=== PATIENT | male | born 1950 | race Caucasian/White ===

== ENCOUNTER 2020-01-04 00:51 | Emergency (ER) | payer MEDICARE, SELFPAY ==
[2020-01-04] VITALS (10 sets, daily range): BP systolic 92–145; BP diastolic 48–96; PULSE 70–81; RESP 16–22; TEMP 36.8; O2SAT 90–94; BMI 43.6
--- NOTE | 2020-01-04 01:21 | CT_ITS ---
PROCEDURE: CT HEAD/BRAIN WO CON CLINICAL INDICATION: altered mental status Altered mental status, altered level of consciousness, confusion, disorientation the COMPARISON: No exams were available for comparison TECHNIQUE: Axial images obtained. All CT scans at the facility use one or more dose reduction, viz: automated exposure control, ma/kV adjustment per patient size (including targeted exams where dose is matched to indication, i.e. head), or iterative reconstruction technique. FINDINGS: No midline shift, mass effect, intracranial hemorrhage, hydrocephalus, or extra-axial fluid collection is evident. The calvarium has an unremarkable appearance. No mastoid effusion. There is mild mucosal thickening of the ethmoid sinuses. IMPRESSION: No acute intracranial finding Dictated by: Myron Dow MD 01/04/2020 05:34 Myron Dow MD in [facility] 01/04/2020 05:34
[2020-01-04 01:27] LABS: Microscopic, Urine URINE MICROSCOPIC (MICROSCOPIC)
[2020-01-04 01:29] LABS: Appearance,Urine CLEAR (Clear); Bilirubin,Urine Negative (Negative); Blood, Urine Negative (Negative); Color,Urine YELLOW (Yellow); Glucose,Urine (UA) Negative (Negative); Ketones,Urine Negative (Negative); Leukocyte Esterase,Urine Negative (Negative); Nitrate,Urine Negative (Negative); PH,Urine 5.5 (5.0-8.5); Protein,Urine Negative (Negative); Specific Gravity, Urine 1.025 (1.005-1.030); Urobilinogen,Urine 0.2 EU/dl (0.2)
--- NOTE | 2020-01-04 01:33 | XR_ITS ---
PROCEDURE: XR CHEST 2V CLINICAL HISTORY: COPD, smoker, cough COMPARISON: CT CT CHEST WO CON from 01/04/2020 FINDINGS: The cardiomediastinal silhouette and pulmonary vascularity are within normal limits. There are increased markings in the right lower lobe which may be due to vascular overlap and soft tissue attenuation as this area has an unremarkable appearance on the subsequent CT scan. No acute bony abnormalities. IMPRESSION: No acute findings. Dictated by: Myron Dow MD 01/04/2020 05:32 Myron Dow MD in [facility] 01/04/2020 05:32
--- NOTE | 2020-01-04 01:34 | PC.NURSE ---
Pt to rad at this time
[2020-01-04 01:35] LABS: Mucus,Urine 4+ /lpf
[2020-01-04 01:36] LABS: Amorphous Sediment,Urine 1+ /lpf
[2020-01-04 01:38] LABS: Benzodiazepines Screen,Urine Negative ng/ml (<200)
[2020-01-04 01:39] LABS: Amphetamine/Metha Screen,Urine Negative ng/ml (<1000)
[2020-01-04 01:40] LABS: Barbiturates Screen,Urine Negative ng/ml (<200); Methadone Screen,Urine Negative ng/ml (<300)
[2020-01-04 01:41] LABS: ABG Base Excess 7.6 mmol/L (-2.4-2.3); ABG HCO3 32.5 mmhg (22.0-26.0); ABG Oxygen Saturation 90 % (90-100); ABG PH 7.39 mmol/L (7.35-7.45); ABG TCO2 34.2 mmhg (23-27); Allen's Test Y; Oxygen 2 %; Source R/R
[2020-01-04 01:41] LABS: Cannabinoid Screen,Urine Negative ng/ml (<50)
[2020-01-04 01:42] LABS: ABG PCO2 54.8 mmhg (35.0-45.0); ABG PO2 48.6 mmhg (80-100)
[2020-01-04 01:42] LABS: Cocaine Screen,Urine Negative ng/ml (<300); Opiate Screen,Urine Positive ng/ml (<300)
[2020-01-04 01:43] LABS: Phencyclidine Screen,Urine Negative ng/ml (<25)
[2020-01-04 01:45] LABS: Chloride 93 mmol/L (98-107); Potassium 4.1 mmoL/L (3.5-5.1); Sodium 135 mmol/L (136-145)
[2020-01-04 01:47] LABS: Alanine Aminotransferase 21 U/L (12-78); Alkaline Phosphatase 78 U/L (38-126); Anion Gap 9.1 mEq/L (5-15); Aspartate Amino Transferase 32 U/L (17-59); Basophils # 0.1 K/mm3 (0-0.2); Basophils % 0.5 % (0.1-2.0); Bilirubin,Total 0.6 mg/dl (0.2-1.3); Blood Urea Nitrogen 19 mg/dl (9-20); Carbon Dioxide 37 mmol/L (22.0-30.0); Creatinine Clearance Estimated 65 mL/min (50-200); Eosinophils # 0.1 K/mm3 (0.0-0.4); Eosinophils % 0.7 % (0.1-12.0); Estimated Glomerular Filt Rate 66 ml/min (>60); GFR (African American) 80 ML/MIN (>60); Hematocrit 51.6 % (42.0-52.0); Hemoglobin 17.3 g/dL (14.1-18.0); Lymphocytes # 0.5 K/mm3 (0.7-4.5); Lymphocytes % 4.7 % (10-50); Mean Corpuscular HGB Conc 33.6 g/dL (31.8-35.4); Mean Corpuscular Hemoglobin 33.3 pg (27.0-31.2); Mean Corpuscular Volume 99.1 fl (80-94); Mean Platelet Volume 7.9 fl (7.4-10.4); Monocytes # 0.5 K/mm3 (0.1-1.0); Monocytes % 4.7 % (1.7-9.3); Neutrophils # 10.1 K/mm3 (1.8-7.8); Neutrophils % 89.5 % (37.0-80.0); Platelet Count 87 K/mm3 (142-424); Red Blood Count 5.21 M/mm3 (4.60-6.20); Red Cell Distribution Width 13.7 % (11.5-17.5); White Blood Count 11.2 K/mm3 (4.8-10.8)
[2020-01-04 01:48] LABS: Albumin Level 4.4 g/dl (3.5-5.0); Albumin/Globulin Ratio 1.4 (1.1-1.8); Calcium 8.9 mg/dl (8.4-10.2); Globulin 3.2 g/dL (1.3-3.2); Glucose 112 mg/dl (74-100); Lactic Acid 1.7 mmol/L (0.7-2.1); Total Protein,Serum 7.6 g/dl (6.3-8.2)
[2020-01-04 01:49] LABS: Ammonia 12 umol/L (9-30); Ethyl Alcohol < 10 mg/dl (0-10)
[2020-01-04 01:55] LABS: MANUAL DIFFERENTIAL MANUAL DIFFERENTIAL (MANUAL DIFF)
--- NOTE | 2020-01-04 01:56 | PC.NURSE ---
back from rad
--- NOTE | 2020-01-04 01:56 | PC.NURSE ---
pt ambulated independently from the wheelchair to the stretcher. tolerated well.
[2020-01-04 01:57] LABS: NT Pro Brain Natriuretic Pep. 780 pg/mL (0-125)
[2020-01-04 02:05] LABS: Procalcitonin 3.08 ng/mL (0.0-2.0)
[2020-01-04 02:18] LABS: Troponin I < 0.01 ng/ml (0.00-0.034)
[2020-01-04 02:19] LABS: Lymphocytes % 5 % (10-50); Macrocytosis 1+; Monocytes % 1 % (2-9); Neutrophils % 86 % (42-76); Platelet Estimate Slight Decrease; Total Cells Counted 100
[2020-01-04 02:20] LABS: Coronavirus 19 IgG Antibody Negative (Negative); Coronavirus 19 IgM Antibody Negative (Negative)
--- NOTE | 2020-01-04 02:40 | PC.NURSE ---
pt was verbally inappropriate with nursing staff during administration of ivf's and solumedrol. comments made repetitively oh baby push it like that....oh yeah....that's right...do it that way.... . pt requested water and was denied due to impending test results
--- NOTE | 2020-01-04 02:45 | CT_ITS ---
PROCEDURE: CT CHEST WO CON CLINICAL INDICATION: cough COPD, cough, smoker COMPARISON: No exams were available for comparison TECHNIQUE: Axial images obtained with sagittal and coronal reformats. All CT scans at the facility use one or more dose reduction, viz: automated exposure control, ma/kV adjustment per patient size (including targeted exams where dose is matched to indication, i.e. head), or iterative reconstruction technique. FINDINGS: HEART AND MEDIASTINAL STRUCTURES: There are few scattered small mediastinal lymph nodes some of which are calcified. Coronary artery calcifications are present. No mediastinal or hilar mass. LUNGS AND PLEURAL SPACES: Unremarkable. BONY STRUCTURES: There are old bilateral rib fractures. Degenerative disc disease T7-T8 UPPER ABDOMEN: Moderate amount of retained colonic feces. Scattered small nodes in the retroperitoneum ADDITIONAL FINDINGS: No other significant abnormalities. IMPRESSION: No acute finding Dictated by: Myron Dow MD 01/04/2020 05:52 Myron Dow MD in [facility] 01/04/2020 05:52
--- NOTE | 2020-01-04 02:52 | PC.NURSE ---
at bedside. verbal orders received. pt to ct at this time.
--- NOTE | 2020-01-04 03:13 | PC.NURSE ---
this nurse could hear pt laughing and talking loud with his son. pt would repeatedly hit his pulse OX against the bed railing. thus nurse went in the room and asked the pt to stop hitting his pulse OX on the railing and to try to keep the noise level down because we had pts sleeping near by. pt stated he wouldnt and laughed and continued to be loud.
--- NOTE | 2020-01-04 03:42 | HMH.EDAMS ---
ED Disposition Clinical Impression: COPD (chronic obstructive pulmonary disease) Qualifiers: COPD type: COPD with acute exacerbation Qualified Code(s): J44.1 - Chronic obstructive pulmonary disease with (acute) exacerbation CHF (congestive heart failure) Qualifiers: Heart failure type: unspecified Heart failure chronicity: acute on chronic Qualified Code(s): I50.9 - Heart failure, unspecified Obesity Qualifiers: Obesity type: due to excess calories Obesity classification: adult class 3 (BMI >= 40) Serious obesity comorbidity presence: with serious comorbidity Body mass index: BMI 40.0-44.9 Qualified Code(s): E66.01 - Morbid (severe) obesity due to excess calories; Z68.41 - Body mass index [BMI]40.0-44.9, adult Disposition: Home, Self-Care Condition on Discharge: Good Instructions: DI for Altered Mental Status Additional Instructions: use meds and see pcp and card Referrals: Leighton May [Primary Care Provider] - Shay Tovar MD [Staff Physician] - Ari Covington MD [Physician] - - Critical Care Critical Care Time: No Attestation: On 01/04/20, the high probability of a clinically significant, sudden or life threatening deterioration of the following system(s) required my full and direct attention, intervention and personal management. The time I documented below is in addition to time spent performing reported procedures but includes the following listed in this critical care notation. Medical Decision Making - Medical Records Medical records reviewed: Yes: I reviewed the patient's medical records. - Jaime Inquiry Pt receiving controlled substance: No Vital Signs: 01/04/20 00:54 01/04/20 01:30 01/04/20 02:00 Pulse Rate [Left Radial] 78 74 75 Respiratory Rate 19 22 20 Blood Pressure [Right Arm] 117/53 L 126/60 134/60 Blood Pressure Mean [Right Arm] 74 82 84 Blood Pressure Source [Right Arm] Automatic Cuff Blood Pressure Position [Right Arm] Sitting 02 Sat by Pulse Oximetry 92 L 90 L 90 L Oxygen Delivery Method Nasal Cannula Nasal Cannula Nasal Cannula Oxygen Flow Rate (LPM) 2.5 2.5 2.5 01/04/20 02:21 01/04/20 02:37 01/04/20 03:21 Pulse Rate [Left Radial] 73 73 70 Respiratory Rate 22 18 18 Blood Pressure [Right Arm] 126/92 H 116/96 H 92/59 L Blood Pressure Mean [Right Arm] 103 102 70 Blood Pressure Source [Right Arm] Blood Pressure Position [Right Arm] 02 Sat by Pulse Oximetry 90 L 91 L 93 L Oxygen Delivery Method Nasal Cannula Nasal Cannula Nasal Cannula Oxygen Flow Rate (LPM) 2.5 2.5 2.5 01/04/20 04:00 01/04/20 04:32 01/04/20 05:00 Pulse Rate [Left Radial] 73 71 71 Respiratory Rate 18 18 18 Blood Pressure [Right Arm] 130/48 L 130/70 145/60 H Blood Pressure Mean [Right Arm] 75 90 88 Blood Pressure Source [Right Arm] Blood Pressure Position [Right Arm] 02 Sat by Pulse Oximetry 91 L 92 L 94 L Oxygen Delivery Method Nasal Cannula Nasal Cannula Nasal Cannula Oxygen Flow Rate (LPM) 2.5 2.5 2.5 - Lab Data Lab results reviewed: Yes: I reviewed the patient's lab results. Lab Results 01/04/20 01:10: Urine Color Yellow, Urine Appearance Clear, Urine pH 5.5, Ur Specific [place] 1.025, Urine Protein Negative, Urine Glucose (UA) Negative, Urine Ketones Negative, Urine Blood Negative, Urine Nitrate Negative, Urine Bilirubin Negative, Urine Urobilinogen 0.2, Ur Leukocyte Esterase Negative, Urine WBC 10-20, Ur Squamous Epith Cells 5-10, Amorphous Sediment 1+, Urine Mucus 4+ 01/04/20 01:10: Urine Opiates Screen Positive H, Urine Methadone Screen Negative, Ur Barbituates Screen Negative, Ur Phencyclidine Scrn Negative, Ur Amphetamines Screen Negative, U Benzodiazepines Scrn Negative, Urine Cocaine Screen Negative, U Marijuana (THC) Screen Negative 01/04/20 01:20: WBC 11.2 H, RBC 5.21, Hgb 17.3, Hct 51.6, MCV 99.1 H, MCH 33.3 H, MCHC 33.6, RDW 13.7, Plt Count 87 L, MPV 7.9, Neut % (Auto) 89.5 H, Lymph % (Auto) 4.7 L, [place] % (Auto) 4.7, Eos % (Auto) 0.7, Baso % (Auto) 0.5, Neut # (Auto) 1
[2020-01-04 04:14] LABS: T4 (Thyroxine) 7.9 ug/dl (5.53-11.0)
[2020-01-04 04:27] LABS: Thyroid Stimulating Hormone 0.52 uIU/mL (0.465-4.68)
[2020-01-04 05:03] LABS: Troponin I 0.01 ng/ml (0.00-0.034)
[2020-01-04 11:04] LABS: POC Glucose,Bedside 110 (70-110)
== END 2020-01-04 05:52 | disposition home or self-care (01) ==
PROVIDERS: Emergency Provider Emergency Medicine; PCP Family Medicine
DX: Z20.828 Contact with and (suspected) exposure to other viral communicable diseases (principal); J44.1 Chronic obstructive pulmonary disease with (acute) exacerbation; I50.9 Heart failure, unspecified; E66.01 Morbid (severe) obesity due to excess calories; Z68.41 Body mass index [BMI] 40.0-44.9, adult; Z01.84 Encounter for antibody response examination; Z79.899 Other long term (current) drug therapy
CPT/HCPCS: 70450; 71046; 71250; 80053; 80305; 81001; 82140; 82803; 82962; 83605; 83880; 84145; 84436; 84443; 84484; 85007; 85025; 86328; 87040; 87070; 87077; 87086; 87186; 87205; 96365; 99284

== ENCOUNTER → 2020-02-15 12:13 | Outpatient (CLI) | payer MEDICARE, SELFPAY ==
--- NOTE | 2020-02-15 | CA_ITS ---
APPROVED REPORT Exam: Pharmacologic Technologist: Olamide Jennings Ht: 5 ft 10 in Wt: 310 lbs BSA: 2.51 m2 HR: 60 bpm BP: 133/65 mmHg Indications: Shortness of Breath, Bruit Medical History Medications: Amlodipine,,,,, Lisinopril,,,,, Furosemide (LASIX),,,,, Clonidine,,,,, Lovastatin,,,,, Gabapentin,,,,, Carvedilol,,,,, Citalopram,,,,, Combivent,,,,, Albuterol,,,,, Theophylline,,,,, Ibuprofen,,,,, Stress Test Details Test: LEXISCAN HR Resting HR: 59 bpm Max Heart Rate (APMHR): 151 bpm Max HR Achieved: 62 bpm Target HR (85% APMHR): 128 bpm % of APMHR: 41 Recovery HR: 59 bpm BP Resting BP: 133.0/65.0 mmHg Max BP: 144.0/68.0 mmHg Recovery BP: 133.0/67.0 mmHg ECG Clinical Exercise duration: 04:00 min Highest Stage Achieved: Exercise capacity: 1.0 METs Stress ECG Conclusion Symptoms: Mild shortness of breath during Lexiscan infusion, resolved in recovery, quickly. Arrhythmias/Ectopy: None ST-T Changes: < 1.[address] segment changes. Test Summary REST . . . . . . . Resting REST 10:34 . . 59 . 133/ 65 . . Stage 1 . . . . . . . Myoview Injected Stage 1 01:00 . . 59 . . . . Stage 2 01:00 . . 62 . . . . Stage 3 01:00 . . 61 . 133/ 66 . . Stage 4 01:00 . . 59 . 144/ 68 . Stop exercise at 04:00 RECOVERY 01:00 . . 60 . . . . RECOVERY 02:00 . . 60 . 138/ 67 . . RECOVERY 03:00 . . 60 . 138/ 67 . . RECOVERY 03:33 . . 59 . 133/ 67 . . Electronically signed by : Sarmad Kelly, 02/16/2020 06:29:01
--- NOTE | 2020-02-15 12:13 | NM_ITS ---
APPROVED REPORT Exam: Nuclear Stress Test Indication: OBESITY, HTN, HYPERLIPIDEMIA, TOB USE, SOB Patient Location: Outpatient Stress Tech: Olamide Jennings NM Tech:Garima Kruse, ARRT, RT (R)(N) Ht: 5 ft 10 in Wt: 310 lbs HR: 60 bpm BP: 133/65 mmHg BSA: 2.51 m2 BMI: 44.4 History: OBESITY, HTN, HYPERLIPIDEMIA, TOB USE, SOB Procedure: Patient received a 0.4 mg of intravenous Lexiscan, resting heart rate 60 bpm, resting blood pressure 133/65 mmHg, with Lexiscan maximum heart rate achived was 59 bpm which is Less than 85 % of the maximum predicted heart rate and blood pressure was 144/68 mmHg. With Lexiscan, patient denied any complaint of chest pain. Electrocardiogram Resting electrocardiogram showed sinus rhythm, with Lexiscan there is less than 1.[address] segment depression noted from the baseline EKG. The EKG portion of the Lexiscan is nondiagnostic. Cardiac Stress and Resting SPECT Images: Cardiac Stress and Resting SPECT images were obtained using technetium 99m Myoview 30.7 mCi stress and 9.86 mCi at rest. Gated SPECT for analysis of segmental wall motion and calculation of the ejection fraction also done. Prone images were also obtained. Cardiac stress and rest SPECT images show uniform myocardial activity without segmental perfusion abnormality, computer derived ejection fraction is 65% with no regional wall motion abnormality, right ventricle is mildly enlarged with normal contractility. Conclusion: 1. The EKG portion of the Lexiscan Myoview is nondiagnostic. 2. No scintigraphic evidence of reversible ischemia seen, computer derived ejection fraction is 65% with no regional wall motion abnormality, right ventricle is mildly enlarged with normal contractility. 3. Normal Lexiscan Myoview study. Electronically signed by : Sarmad Kelly, 02/16/2020 06:37:53
--- NOTE | 2020-02-15 12:51 | CA_ITS ---
APPROVED REPORT EXAM: Comprehensive 2D, Doppler, and color-flow Echocardiogram Infrastructure Administrator: Adriana Sewell CRT Ht: 5 ft 10 in Wt: 310lbs BSA: 2.51 BP: 122/54 mmHg Indications: COPD, Shortness of Breath, Peripheral Edema, CAD, Hyperlipidemia, Hypertension/HDD, Smoker, home o2 2D Dimensions LVOT 2.11 cm (M/F) 1.5-2.5 M-Mode Dimensions RVDd 2.95 cm (0.9-2.6) LA Diam 4.04 cm (1.9-4.0) LVDd 5.62 cm (3.5-5.7) Ao Diam 4.74 cm (2.0-3.7) LVDs 3.18 cm (3.5-5.7) IVSd 1.50 cm (0.6-1.1) PWd 1.17 cm (0.6-1.1) EF (Teich) 74.00% FS 43.40% EDV (Teich) 154.90 mL ESV (Teich) 40.30 mL LV Diastology E Decel Time 243.00 (160-240 msec) E/A Ratio 1.15 Aortic Valve AI PHT 451.00 ms AO Peak GR. 5.80 mmHg Mitral Valve MV A Velocity 74.00 (40-130 cm/s) E/A Ratio 1.15 MV Decel. Time 243.00 (160-240 ms) Tricuspid Valve TR P. Velocity 243.00 cm/s RAP Estimate 15.00 mmHg RVSP 38.60 mmHg Left Ventricle Technically difficult study because of the patient factors and poor acoustic windows. Left atrium is mildly enlarged, left ventricle is normal size, mild concentric left ventricular hypertrophy, visually estimated ejection fraction 55% with no regional wall motion abnormality, diastolic parameters are inconclusive. Right Ventricle Right atrium and right ventricular mildly enlarged with normal contractility. Aortic Valve Aortic valve is minimally thickened and fibrosed, there is no aortic stenosis, there is trace aortic insufficiency. Mitral Valve Mitral valve leaflets are minimally thickened, there is mild mitral regurgitation. Tricuspid Valve Tricuspid valve is grossly normal, there is mild tricuspid regurgitation, tricuspid regurgitation jet velocity is inadequate for calculation of the right ventricular systolic pressure. Pulmonic Valve Pulmonic valve is poorly visualized. Great Vessels Aortic root is normal size. Pericardium No significant pericardial effusion noted. Conclusion 1. Technically difficult study because of the patient factors and poor acoustic windows. 2. Mild biatrial enlargement, normal left ventricular size, mild concentric left ventricular hypertrophy, visually estimated ejection fraction 55% with no regional wall motion abnormality, diastolic parameters are inconclusive. 3. Mildly enlarged right ventricle with normal contractility. 4. Thickened and calcified aortic valve without aortic stenosis, there is trace aortic insufficiency. 5. Mild mitral and tricuspid regurgitation. 6. No significant pericardial effusion noted. Electronically signed by : Sarmad Kelly, 02/16/2020 06:17:38
--- NOTE | 2020-02-15 12:51 | CA_ITS ---
APPROVED REPORT Podiatry Professor: JIMI Laterality: Bilateral Study Quality: Adequate, Due to body habitus. Indications: dyspnea Risk Factors Hypertension: Hyperlipidemia CAD, Smoking Doppler Spectral Velocity Analysis ECA (R) 84.50/12.00 cm/s ECA (L) 124.20/21.00 cm/s dICA (R) 70.00/29.90 cm/s dICA (L) 76.30/21.70 cm/s [place] (R) 75.90/18.70 cm/s [place] (L) 65.80/19.50 cm/s pICA (R) 54.50/15.00 cm/s pICA (L) 38.50/11.50 cm/s dCCA (R) 53.50/11.50 cm/s dCCA (L) 53.90/18.00 cm/s pCCA (R) 87.70/21.40 cm/s pCCA (L) 89.00/21.70 cm/s Vert (R) 41.90/12.70 cm/s Vert (L) 41.90/10.50 cm/s ICA/CCA 1.42 ICA/CCA 1.42 Findings Duplex evaluation demonstrates stenosis of the right proximal internal carotid artery <20% with PSV <140 cm/sec, EDV <100 cm/sec, and IC/CC Ratio <4.0. Duplex evaluation demonstrates stenosis of the left proximal internal carotid artery <20% with PSV <140 cm/sec, EDV <100 cm/sec, and IC/CC Ratio <4.0. Conclusion Duplex evaluation demonstrates stenosis of the right proximal internal carotid artery <20% with PSV <140 cm/sec, EDV <100 cm/sec, and IC/CC Ratio <4.0. Duplex evaluation demonstrates stenosis of the left proximal internal carotid artery <20% with PSV <140 cm/sec, EDV <100 cm/sec, and IC/CC Ratio <4.0. Electronically signed by : Myron Dow MD 02/16/2020 17:03:06
--- NOTE | 2020-02-15 13:40 | HMH.ITSHM ---
Current Home Medications as stated by this patient Michael Malone JR or instruments sales representative. []LISINOPRIL LEVOFLOXACIN IPRATROPIUM CLONIDINE CARVEDILOL ASA ALBUTEROL VENLAFAXINE TRAZODONE LOVASTATIN NORCO GABAPENTIN FUROSEMIDE CITALOPRAM BACLOFEN AMLODIPINE
== END ==
PROVIDERS: PCP Family Medicine; Visit Provider Nurse Practitioner Family
DX: I25.10 Atherosclerotic heart disease of native coronary artery without angina pectoris (principal); R06.00 Dyspnea, unspecified; R41.0 Disorientation, unspecified; R20.0 Anesthesia of skin
CPT/HCPCS: 78452; 93017; 93306; 93880; A9502; J2785

== ENCOUNTER → 2022-05-11 12:58 | Outpatient (CLI) | payer MEDICARE, SELFPAY ==
--- NOTE | 2022-05-11 14:42 | CT_ITS ---
FINAL REPORT TECHNIQUE: Axial images were obtained from the lung apex to the mid abdomen by computed tomography. This study was performed with techniques to keep radiation doses as low as reasonably achievable (ALARA). Individualized dose reduction techniques using automated exposure control or adjustment of mA and/or kV according to the patient's size were employed. CLINICAL HISTORY: lung cancer screening Smokes 1/2 pk per day x 60 yrs copd, emphysema exoposed to diesel fumes, asbestos, coal smoke COMPARISON: 01/04/2020 FINDINGS: CHEST CT LOW DOSE CTDI vol (mGy): 2.90 DLP (mGy-cm): 125.85 There is no axillary adenopathy. There are several borderline size and mildly enlarged mediastinal nodes, stable. The heart is normal in size. There is no pericardial or pleural effusion. Lung window images demonstrate no suspicious infiltrate or nodule. There are numerous nodules and opacities in the lung bases which are new, most likely infectious/inflammatory. Several chronic left posterior rib fractures are identified. Limited images of the upper abdomen are unremarkable. IMPRESSION: Numerous nodules and opacities which are new, most likely infectious/inflammatory. Lung RADS category 0. Recommend 3 month follow-up low-dose chest CT. Reviewed, Interpreted and Dictated by Adal Bautista III, MD Transcribed by Millie Quintanilla Authenticated and [facility]
== END ==
PROVIDERS: PCP Family Medicine; Visit Provider Internal Medicine Pulmonary Disease
DX: R06.09 Other forms of dyspnea; Z87.891 Personal history of nicotine dependence; Z12.2 Encounter for screening for malignant neoplasm of respiratory organs
CPT/HCPCS: 71271; 94060; 94618; 94726; 94729

== ENCOUNTER → 2022-08-15 14:02 | Outpatient (CLI) | payer MEDICAID, SELFPAY ==
--- NOTE | 2022-08-15 14:07 | XR_ITS ---
FINAL REPORT CLINICAL HISTORY: copd FINDINGS: TWO VIEW CHEST The heart size is normal. The mediastinum is normal. The lungs are clear. There is no pneumothorax. IMPRESSION: No acute cardiopulmonary process. Reviewed, Interpreted and Dictated by Niko Case MD Transcribed by Roberto Yancey Authenticated and [facility]
[2022-08-15 17:06] LABS: Theophylline 5.7 ug/ml (10-20)
== END ==
PROVIDERS: PCP Family Medicine; Visit Provider Internal Medicine Pulmonary Disease
DX: J44.9 Chronic obstructive pulmonary disease, unspecified (principal); Z51.81 Encounter for therapeutic drug level monitoring; Z79.899 Other long term (current) drug therapy
CPT/HCPCS: 36415; 71046; 80198

== ENCOUNTER 2023-02-24 03:25 | Observation (INO) | payer MEDICARE, OTHER, SELFPAY ==
[2023-02-24] VITALS (27 sets, daily range): BP systolic 98–147; BP diastolic 34–81; PULSE 60–88; RESP 17–22; TEMP 36.1–36.9; O2SAT 92–100; BMI 33.7; BMI 40.2
--- NOTE | 2023-02-24 03:25 | CT_ITS ---
PROCEDURE INFORMATION: Exam: CT Head Without Contrast Exam date and time: 02/24/2023 4:10 AM Age: 72 years old Clinical indication: Injury or trauma; Fall; Blunt trauma (contusions or hematomas); Altered mental status/memory loss; Additional info: Falls TECHNIQUE: Imaging protocol: Computed tomography of the head without contrast. Radiation optimization: All CT scans at this facility use at least one of these dose optimization techniques: automated exposure control; mA and/or kV adjustment per patient size (includes targeted exams where dose is matched to clinical indication); or iterative reconstruction. REPORTING DATA: Count of CT and Cardiac NM exams in prior 12 months: This patient has received [address] and 0 known cardiac nuclear medicine studies in the 12 months prior to the current study. COMPARISON: CT HEAD/BRAIN WO CON 01/04/2020 1:38 AM FINDINGS: Brain: There is diffuse prominence of the cerebral sulci, cisterns, and ventricles consistent with atrophy. No intra or extra-axial fluid collections are noted. No mass or mass effect is seen. Periventricular white matter hypoattenuation is seen consistent with chronic small vessel disease. Cerebral ventricles: No ventriculomegaly. Paranasal sinuses: Visualized sinuses are unremarkable. No fluid levels. Mastoid air cells: Visualized mastoid air cells are well aerated. Bones/joints: Unremarkable. No acute fracture. Soft tissues: Unremarkable. IMPRESSION: No acute process noted. Some motion artifact does degrade the image quality on the exam.
--- NOTE | 2023-02-24 03:25 | XR_ITS ---
PROCEDURE INFORMATION: Exam: XR Left Hand Exam date and time: 02/24/2023 4:17 AM Age: 72 years old Clinical indication: Pain; Finger(s); Left; Additional info: Jammed hand in doorway, index finger pain TECHNIQUE: Imaging protocol: Radiologic exam of the left hand. Views: 3 or more views. COMPARISON: No relevant prior studies available. FINDINGS: Bones/joints: Normal. Soft tissues: Some soft tissue swelling is noted laterally. IMPRESSION: No fracture or dislocation identified.
--- NOTE | 2023-02-24 03:25 | CT_ITS ---
PROCEDURE INFORMATION: Exam: CT Cervical Spine Without Contrast Exam date and time: 02/24/2023 4:10 AM Age: 72 years old Clinical indication: Injury or trauma; Fall; Blunt trauma; Additional info: Falls TECHNIQUE: Imaging protocol: Computed tomography of the cervical spine without contrast. Radiation optimization: All CT scans at this facility use at least one of these dose optimization techniques: automated exposure control; mA and/or kV adjustment per patient size (includes targeted exams where dose is matched to clinical indication); or iterative reconstruction. REPORTING DATA: Count of CT and Cardiac NM exams in prior 12 months: This patient has received [address] and 0 known cardiac nuclear medicine studies in the 12 months prior to the current study. COMPARISON: CT HEAD/BRAIN WO CON 02/24/2023 4:10 AM FINDINGS: Bones/joints: Diffuse cervical spondylosis is noted. Hypertrophic changes of the facet present bilaterally. Motion related artifact on images series 4 images 34-37. Discs/Spinal canal/Neural foramina: Narrowing of multiple intervertebral disc spaces are seen. Moderate neural foraminal narrowing is also noted. Lungs: Lung apices are normal. Vasculature: No obvious traumatic injury is seen. Carotid atherosclerosis is present. Soft tissues: Unremarkable. IMPRESSION: 1. There is an area of cortical discontinuity at the base of the dens best seen on series 4 axial images 34-37, this likely represents motion artifact. However a dens fracture can not be entirely excluded, consider rescanning this region to exclude C2 injury. Otherwise no fractures are identified. 2. Diffuse cervical spondylosis. 3. Carotid atherosclerosis is present.
--- NOTE | 2023-02-24 03:25 | XR_ITS ---
PROCEDURE INFORMATION: Exam: XR Chest Exam date and time: 02/24/2023 4:17 AM Age: 72 years old Clinical indication: Injury or trauma; Fall; Cough and shortness of breath; Blunt trauma (contusions or hematomas); Additional info: Resp failure, AMS, fall TECHNIQUE: Imaging protocol: Radiologic exam of the chest. Views: 1 view. COMPARISON: CR XR CHEST 2V 08/15/2022 2:09 PM FINDINGS: Lungs: Unremarkable. No consolidation. Pleural spaces: Unremarkable. No pleural effusion. No pneumothorax. Heart/Mediastinum: Unremarkable. No cardiomegaly. Bones/joints: Unremarkable. IMPRESSION: No acute findings.
--- NOTE | 2023-02-24 03:27 | ECG_ITS ---
APPROVED REPORT Exam: Resting ECG HR:67 bpm ECG Measurements Heart Rate 67 AXES QRSd 125 QRS -47 QT 392 T 75 QTc 408 Conclusion Variable atrial morphology - wandering atrial pacer? LEFT ANTERIOR FASCICULAR BLOCK ANTEROSEPTAL MYOCARDIAL INFARCTION , OF INDETERMINATE AGE [40+ ms Q WAVE IN V1-V4] ABNORMAL ECG UNCONFIRMED REPORT Electronically signed by : Álvaro Marx MD 02/24/2023 08:19:27
--- NOTE | 2023-02-24 03:28 | [facility].EDCP ---
Discharge Plan Disposition Patient Disposition: Admitted Condition: Fair Prescriptions Prescriptions: No Action albuterol sulfate 90 mcg/actuation HFA aerosol inhaler 1 inh INHALATION Q4-6H PRN (Reason: SOA) aspirin [Adult Low Dose Aspirin] 81 mg tablet,delayed release (DR/EC) 81 mg PO DAILY Qty: 30 5RF amitriptyline 10 mg tablet 10 mg PO DAILY bupropion HCl 300 mg tablet extended release 24 hr 300 mg PO DAILY buspirone 15 mg tablet 15 mg PO BID Mucinex 1,200 mg tablet extended release 12hr 1,200 mg PO BID Combivent Respimat 20-100 mcg/actuation mist 1 puff inhalation Q6H PRN (Reason: shortness of breath or wheezing) 90 Days Qty: 4 3RF venlafaxine 150 mg capsule,extended release 24hr 150 mg PO AM theophylline 300 mg tablet extended release 12 hr 300 mg PO AM cyclobenzaprine 10 MG tablet 10 mg PO QID carvedilol 25 MG tablet 25 mg PO BID gabapentin 600 MG tablet 600 mg PO QID lisinopril 20 MG tablet 20 mg PO DAILY lovastatin 40 MG tablet 40 mg PO DAILY hydrocodone-acetaminophen 1 EACH tablet 1 tab PO QID PRN (Reason: pain) clonidine HCl 0.2 MG tablet 0.2 mg PO DAILY furosemide 80 MG tablet 40 mg PO DAILY baclofen 10 MG tablet 10 mg PO QID amlodipine 10 MG tablet 10 mg PO DAILY ibuprofen 600 MG tablet 600 mg PO Q8HP Referrals Follow up/Referrals: Leighton May [Primary Care Provider] - See instructions Clinical Impressions Clinical Impression: Acute exacerbation of chronic obstructive pulmonary disease, Acute on chronic respiratory failure with hypoxia and hypercapnia, AMS (altered mental status) Discharge ED Provider: Kathy Mehta HPI General Chief Complaint: Shortness of Breath/Dyspnea Stated Complaint: Dyspnea Time Seen by Provider: 02/24/23 03:27 History of Present Illness HPI narrative: This patient is a 72-year-old male with a history of COPD, chronic respiratory failure on 2.5 L nasal cannula, CAD, hypertension, hyperlipidemia, and CHF presenting to the emergency department for evaluation with concern for altered mental status and respiratory distress. According to EMS, they were called to the home of the patient early yesterday morning, the but the patient refused to be transported to the hospital despite low oxygen saturations on his home oxygen. He was alert and oriented at that time, so they left him. They were called to the home again tonight because he is altered and continues to be in respiratory distress. Patient was noted to be hypoxic with an O2 saturation in the 70s on 3.5 L nasal cannula. EMS gave 2 DuoNeb's as well as 125 mg of IV Solu-Medrol prior to arrival, which did not significantly improved his respiratory status. He arrives with a DuoNeb treatment finishing. Patient of note had his left hand jammed in the doorway when rolling into the ED here and complains of left index finger pain. He also has bruising and scrapes to his knees, but he is disoriented and does not contribute much to history to tell me when or how he fell. Patient has also had thick, yellow sputum and continues to smoke. Related Data Home Medications Medication Instructions Recorded Confirmed amlodipine 10 mg tablet 10 mg PO DAILY htn 01/04/20 02/24/23 baclofen 10 mg tablet 10 mg PO QID Pain 01/04/20 02/24/23 carvedilol 25 mg tablet 25 mg PO BID Hypertension 01/04/20 02/24/23 clonidine HCl 0.2 mg tablet 0.2 mg PO DAILY Hypertension 01/04/20 02/24/23 cyclobenzaprine 10 mg tablet 10 mg PO QID muscle relaxer 01/04/20 02/24/23 furosemide 80 mg tablet 40 mg PO DAILY diuretic 01/04/20 02/24/23 gabapentin 600 mg tablet 600 mg PO QID peripheal neuropathy 01/04/20 02/24/23 hydrocodone 10 mg-acetaminophen 1 tab PO QID PRN pain 01/04/20 02/24/23 325 mg tablet ibuprofen 600 mg tablet 600 mg PO Q8HP Pain 01/04/20 02/24/23 lisinopril 20 mg tablet 20 mg PO DAILY Hypertension 01/04/20 02/24/23 lovastatin 40 mg tablet 40 mg PO DAILY Cholesterol 01/04/20 02/24/23 albuterol sulfate 90 mcg/actuation 1 inh inhalation Q4-6H PRN SOA 01/15/20 02/24/23 aerosol inhaler amitriptyline 10 mg tablet 10 mg PO DAILY 02/27/22 02/24/23 bupropion HCl 300 mg 24 hr tablet, 300 mg PO DAILY 02/27/22 02/24/23 extended release buspirone 15 mg tablet 15 mg PO BID 02/27/22 02/24/23 guaifenesin 1,200 mg tablet, 1,200 mg PO BID 02/27/22 02/24/23 extended release 12 hr (Mucinex) theophylline 300 mg 300 mg PO AM 02/24/23 02/24/23 tablet,extended release,12 hr venlafaxine 150 mg 150 mg PO AM 02/24/23 02/24/23 capsule,extended release 24 hr Previous Rx's Medication Instructions Recorded aspirin 81 mg tablet,delayed 81 mg PO DAILY #30 tabs 01/18/20 release (Adult Low Dose Aspirin) ipratropium 20 mcg-albuterol 100 1 puff inhalation Q6H PRN 05/16/22 mcg/actuation mist for inhalation shortness of breath or wheezing 90 (Combivent Respimat) days #4 grams Allergies Allergy/AdvReac Type Severity Reaction Status Date / Time Penicillins Allergy Unknown Unknown Verified 06/06/22 13:31 allergy reaction silk Allergy Unknown Unknown Verified 06/06/22 13:31 [facility] Dis[facility]: The information contained in this section may have been updated after the patient was seen, as this information can be updated by other users. Medical History Chronic respiratory failure with hypoxia COPD mixed type COPD mixed type Dyspnea Dyspnea on exertion Encounter for monitoring of theophylline therapy History of COPD MRSA infection Screening for lung cancer Smoking greater than 30 pack years Tobacco abuse Tobacco abuse counseling Surgical History No history of previous surgery Family History Other Asthma Diabetes Hypertension Social History Smoking Status: Current every day smoker alcohol intake: former current occupational status: other Travel in the last 8 weeks: None ROS Obtained: Yes All systems reviewed & no additional complaints except as documented Physical Exam General General appearance: alert, in distress and obese Comment: In mild respiratory distress Head Head exam: atraumatic and normocephalic Eye Eye exam: Present normal appearance, PERRL and EOMI ENT ENT exam: Present normal exam, normal oropharynx, mucous membranes moist and normal external ear exam Neck Neck exam: Present normal inspection, full ROM and trachea midline; Absent tenderness Chest Chest inspection: Present normal inspection and symmetric chest wall rise; Absent tenderness Respiratory Respiratory exam: Present respiratory distress, wheezes, accessory muscle use and prolonged expiratory phase; Absent stridor Cardiovascular Cardiovascular exam: Present regular rate and normal rhythm Abdominal Exam Abdominal exam: Present soft; Absent distention, tenderness or guarding Extremities Exam Extremities exam: Present normal inspection, full ROM and normal capillary refill; Absent tenderness or edema Back Exam Back exam: Present normal inspection and full ROM; Absent tenderness Neurological Exam Neurological exam: Present alert and CN II-XII intact; Absent oriented X3 (Only oriented to person and place, but not time) or motor sensory deficit Psychiatric Psychiatric exam: Present normal affect and normal mood Skin Skin exam: Present warm and dry HEART Score HEART Score HEART Score assessment performed?: Yes History (anamnesis): Slightly suspicious ECG: Normal Age: >65 years Risk factors: Atherosclerosis history Troponin: </= normal limit HEART Score: 4 Critical Care Critical Care Time Critical Care Time: Yes Attestation: On 02/24/23, the high probability of a clinically significant, sudden or life threatening deterioration of the following system(s) (respiratory, neurologic, cardiovascular) required my full and direct attention, intervention and personal management. The time I documented below is in addition to time spent performing reported procedures but includes the following listed in this critical care notation. Total Time Total Critical Care Time: 30 Medical Decision Making Medical Records Medical records reviewed: Yes I reviewed the patient's medical records. Jaime Inquiry Pt receiving controlled substance: No Vital Signs Vital Signs: 02/24/23 03:25 02/24/23 04:12 02/24/23 03:24 Temperature 98.4 F Temperature Source Oral Pulse Rate 77 Pulse Rate [Right] 69 Respiratory Rate 17 Blood Pressure 132/54 L Blood Pressure [Right Arm] 132/59 L Blood Pressure Mean 74 Blood Pressure Mean [Right Arm] 83 Blood Pressure Source [Right Arm] Automatic Cuff 02 Sat by Pulse Oximetry 100 99 Oxygen Delivery Method Nasal Cannula Nasal Cannula Oxygen Flow Rate (LPM) 2.5 02/24/23 03:25 02/24/23 03:30 02/24/23 04:01 Temperature Temperature Source Pulse Rate Pulse Rate [Right] Respiratory Rate 20 Blood Pressure 109/74 L 110/34 L Blood Pressure [Right Arm] Blood Pressure Mean 84 59 Blood Pressure Mean [Right Arm] Blood Pressure Source [Right Arm] 02 Sat by Pulse Oximetry 98 Oxygen Delivery Method BiPAP Oxygen Flow Rate (LPM) 02/24/23 04:18 02/24/23 04:31 Temperature Temperature Source Pulse Rate Pulse Rate [Right] Respiratory Rate Blood Pressure 98/57 L 112/51 L Blood Pressure [Right Arm] Blood Pressure Mean 64 56 Blood Pressure Mean [Right Arm] Blood Pressure Source [Right Arm] 02 Sat by Pulse Oximetry Oxygen Delivery Method Oxygen Flow Rate (LPM) Lab Data Labs: Lab Results 02/24/23 03:25: VBG pH 7.23 L, VBG pCO2 80.8 H, VBG pO2 74.9 H, VBG HCO3 33.0 H, VBG Total CO2 35.5 H, VBG O2 Saturation 93.9 H, VBG Base Excess 5.4 H 02/24/23 03:40: WBC 11.7 H, RBC 4.11 L, Hgb 13.7 L, Hct 40.5 L, MCV 98.5 H, MCH 33.3 H, MCHC 33.8, RDW 13.3, Plt Count 107 L, MPV 7.9, Neut % (Auto) 76.0, Lymph % (Auto) 13.8, [place] % (Auto) 7.6, Eos % (Auto) 1.9, Baso % (Auto) 0.7, Neut # (Auto) 8.9 H, Lymph # (Auto) 1.6, [place] # (Auto) 0.9, Eos # (Auto) 0.2, Baso # (Auto) 0.1, Sodium 134 L, Potassium 3.9, Chloride 97 L, Carbon Dioxide 36 H, Anion Gap 4.9 L, BUN 24 H, Creatinine 1.70 H, Estimated Creat Clear 59, Estimated GFR 40 L, Est GFR ( Amer) 48 L, Glucose 113 H, Lactate 0.6 L, Calcium 8.4, Total Bilirubin 0.4, AST 25, ALT 19, Alkaline Phosphatase 79, Troponin I < 0.01, NT-Pro-B Natriuret Pep 553 H, Total Protein 7.0, Albumin 3.9, Globulin 3.1, Albumin/Globulin Ratio 1.3, SARS-CoV-2 (PCR) Not detected, Influenza A Untype (PCR) Not detected, Influenza Type B (PCR) Not detected 02/24/23 03:40 02/24/23 03:40 Response Orders (Tests/Meds): ED MEDICATIONS Discontinued Medications Generic Name Dose Route Start Last Admin Trade Name Freq PRN Reason Stop Dose Admin Albuterol/Ipratropium 9 ml 02/24/23 03:25 02/24/23 04:10 Ipratropium/Albuterol 3 Ml Neb IH 02/24/23 03:26 9 ml ONCE ONE Administration Doxycycline Hyclate 100 mg/ 250 mls @ 166.667 mls/hr 02/24/23 03:26 02/24/23 03:51 Sodium Chloride IV 02/24/23 03:27 166.667 mls/hr ONCE ONE Administration ORDERS Category Date Time Status CT cervical spine wo con Stat Cat Scan 02/24/23 03:[address] head/brain wo con Stat Cat Scan 02/24/23 03:25 Taken XR chest portable Stat Exams 02/24/23 03:25 Taken XR hand LT min 3V Stat Exams 02/24/23 03:25 Taken Brain Natriuretic Peptide Stat Lab 02/24/23 03:40 Completed Complete Blood Count Auto Diff Stat Lab 02/24/23 03:40 Completed Comprehensive Metabolic Panel Stat Lab 02/24/23 03:40 Completed Lactic Acid Stat Lab 02/24/23 03:40 Completed Rapid PCR Covid and Flu A/B Stat Lab 02/24/23 03:40 Completed Trop I [Troponin I] Stat Lab 02/24/23 03:40 Completed Troponin I Q3H Lab 02/24/23 06:30 Ordered Troponin I Q3H Lab 02/24/23 09:30 Ordered Blood Culture Stat Micro 02/24/23 03:38 Received Venous Blood Gas Stat RT 02/24/23 03:25 Completed ECG initial [place] Routine Y 02/24/23 03:27 Completed ECG Data Tracing #1: Attestation: I reviewed this ECG and interpreted as documented below: ECG Narrative: Normal sinus rhythm with a ventricular rate of [address] changes concerning for ischemia. Some motion artifact noted. ECG initial impression date: 02/24/23 ECG initial impression time: 03:28 MDM Narrative Medical Decision Narrative: In summary, this patient is a 72-year-old male presenting to the Emergency Department for evaluation of respiratory distress and altered mental status in the setting of COPD, CAD, and CHF. Differential diagnoses considered include but are not limited to respiratory failure, COPD exacerbation, CHF exacerbation, pneumonia. Ruling out the most morbid conditions drove assessment. It should be noted patient's history includes COPD, chronic respiratory failure on 2.5 L nasal cannula, hypertension, hyperlipidemia, tobacco dependence, CAD, obesity, and CHF which are not at goal therapy. This complicates all aspects of care by increasing patient's risk for morbidity. I reviewed patient's past medical records and noted previous evaluations by pulmonology in the past with the most recent visit being in July. On exam, the patient is in mild respiratory distress with tachypnea, wheezing, and accessory muscle use. He is also confused and disoriented to time, however he is alert and argumentative. He does have bruising noted to his knees, and he jammed his hand on the way in. Unsure whether or not the patient had a recent fall. Workup included lab evaluation including cardiac workup, infectious workup, and metabolic workup as well as chest x-ray, CT head and C-spine, x-rays of the left hand, and EKG. Patient already received methylprednisolone 125 mg IV prior to arrival. He was given 3 more DuoNebs upon arrival here to assess for symptomatic improvement in his respiratory status. He was also given IV doxycycline with concern for COPD exacerbation with increase in sputum production. I independently interpreted x-ray and CT prior to the radiologist read and noted hazy opacities in the lower lungs, R>L, but no acute fracture or traumatic injury. Please see their read for final interpretation. Labs were obtained that demonstrated decompensated respiratory failure with respiratory acidosis. Patient also appears clinically dry with mild hemoconcentration and THOR. Fluid bolus was deferred at this time, as I fear that it could potentially worsen his respiratory status. Significant respiratory failure, he was placed on BiPAP, which he tolerated well. On multiple subsequent reassessments, he is resting comfortably with reassuring oxygen saturation. Given his respiratory failure, I feel that he would benefit from admission for continued monitoring. Patient was admitted in stable condition after an interactive discussion with the hospitalist.
--- NOTE | 2023-02-24 03:36 | PC.NURSE ---
Per EMS, pts left hand hit door on the way into the ER, pt denies pain, no visible injury noted. pt has dark purple/ yellow bruising to left chest wall and abrasions to bi lat knees, family reports pt was knocked down by a dog Oskar елена.
[2023-02-24 03:42] LABS: Coronavirus 19, PCR Not Detected (NotDetected); Influenza A, PCR Not Detected (NotDetected); Influenza B, PCR Not Detected (NotDetected)
[2023-02-24 03:46] LABS: Basophils # 0.1 K/mm3 (0-0.2); Basophils % 0.7 % (0.1-2.0); Eosinophils # 0.2 K/mm3 (0.0-0.4); Eosinophils % 1.9 % (0.1-12.0); Hematocrit 40.5 % (42.0-52.0); Hemoglobin 13.7 g/dL (14.1-18.0); Lymphocytes # 1.6 K/mm3 (0.7-4.5); Lymphocytes % 13.8 % (10-50); Mean Corpuscular HGB Conc 33.8 g/dL (31.8-35.4); Mean Corpuscular Hemoglobin 33.3 pg (27.0-31.2); Mean Corpuscular Volume 98.5 fl (80-94); Mean Platelet Volume 7.9 fl (7.4-10.4); Monocytes # 0.9 K/mm3 (0.1-1.0); Monocytes % 7.6 % (1.7-9.3); Neutrophils # 8.9 K/mm3 (1.8-7.8); Platelet Count 107 K/mm3 (142-424); Red Blood Count 4.11 M/mm3 (4.60-6.20); Red Cell Distribution Width 13.3 % (11.5-17.5); White Blood Count 11.7 K/mm3 (4.8-10.8)
[2023-02-24] MEDS: DOXYCYCLINE HYCLATE 100 MG in 0.9 % SODIUM CHLORIDE 250 ML 166.667000000000002 MG IV (03:51)
[2023-02-24 03:53] LABS: Alanine Aminotransferase 19 U/L (12-78); Alkaline Phosphatase 79 U/L (38-126); Aspartate Amino Transferase 25 U/L (17-59); Bilirubin,Total 0.4 mg/dl (0.2-1.3); Blood Urea Nitrogen 24 mg/dl (9-20); Carbon Dioxide 36 mmol/L (22.0-30.0); Chloride 97 mmol/L (98-107); Creatinine Clearance Estimated 59 mL/min (50-200); Estimated Glomerular Filt Rate 40 ml/min (>60); GFR (African American) 48 ML/MIN (>60)
[2023-02-24 03:54] LABS: Albumin Level 3.9 g/dl (3.5-5.0); Albumin/Globulin Ratio 1.3 (1.1-1.8); Anion Gap 4.9 mEq/L (5-15); Calcium 8.4 mg/dl (8.4-10.2); Globulin 3.1 g/dL (1.3-3.2); Glucose 113 mg/dl (74-100); Lactic Acid 0.6 mmol/L (0.7-2.1); Potassium 3.9 mmoL/L (3.5-5.1); Sodium 134 mmol/L (136-145)
[2023-02-24 03:54] LABS: VBG Base Excess 5.4 mmol/L (-2.4-2.3); VBG Oxygen Saturation 93.9 % (50-70); VBG PCO2 80.8 mmol/L (35-51); VBG PH 7.23 mmol/L (7.31-7.41); VBG PO2 74.9 mmol/L (28-40); VBG Total CO2 35.5 mmol/L (23-27)
[2023-02-24 04:05] LABS: NT Pro Brain Natriuretic Pep. 553 pg/mL (0-125); Troponin I < 0.01 ng/ml (0.00-0.034)
[2023-02-24] MEDS: IPRATROPIUM/ALBUTEROL 3 ML NEB 9 ML IH (04:10)
--- NOTE | 2023-02-24 05:22 | PC.NURSE ---
called apartment house manager, spoke with JESSICA Vance; requested stepdown bed d/t bipap, dx: copd exacerbation, hypercapnia
--- NOTE | 2023-02-24 05:23 | PC.NURSE ---
ACUTE STEPDOWN ADMISSION TO 216 WITH DX OF COPD WITH EXACERBATION AND HYPERCAPNIA TO SERVICE OF THE HOSPITALIST.
--- NOTE | 2023-02-24 05:56 | P.HP_ITS ---
History of Present Illness *Admission Date: 02/24/23 *Reason for visit:: AMS *History of present illness: This is a 72-year-old morbid obese male, current smoker with a history of COPD, chronic respiratory failure on 2.5 L nasal cannula, CAD, hypertension, hyperlipidemia, and CHF presenting to the emergency department for evaluation with concern for altered mental status and respiratory distress. History obtained from ER documentation and EMS report since patient mentation state does not cooperate with this interview. According to EMS, they were called to the home of the patient early yesterday morning, the but the patient refused to be transported to the hospital despite low oxygen saturations on his home oxygen. He was alert and oriented at that time, so they left him. They were called to the home again tonight because he is altered and continues to be in respiratory distress. Patient was noted to be hypoxic with an O2 saturation in the 70s on 3.5 L nasal cannula. EMS gave 2 DuoNeb's as well as 125 mg of IV Solu-Medrol prior to arrival, which did not significantly improved his respiratory status. He arrives with a DuoNeb treatment finishing. Patient of note had his left hand jammed in the doorway when rolling into the ED here and complains of left index finger pain. He also has bruising and scrapes to his knees, but he is disoriented and does not contribute much to history to tell me when or how he fell. Patient has also had thick, yellow sputum and continues to smoke. Admitted for treatment and management. [facility] Disclaimer: The information contained in this section may have been updated after the patient was seen, as this information can be updated by other users. Medical History Chronic respiratory failure with hypoxia COPD mixed type COPD mixed type Dyspnea Dyspnea on exertion Encounter for monitoring of theophylline therapy History of COPD MRSA infection Screening for lung cancer Smoking greater than 30 pack years Tobacco abuse Tobacco abuse counseling Surgical History No history of previous surgery Family History Other Asthma Diabetes Hypertension Social History (Updated 02/24/23 @ 06:07 by Vicki Huff RN) Smoking Status: Current every day smoker alcohol intake: former current occupational status: other Travel in the last 8 weeks: None Review of Systems Review of Systems Review of systems:: unable to obtain Meds Home Medications and Allergies Home Medications Medication Instructions Recorded Confirmed Type amlodipine 10 mg tablet 10 mg PO DAILY High Blood Pressure 01/04/20 02/24/23 History baclofen 10 mg tablet 10 mg PO QID MUSCLE SPASMS 01/04/20 02/24/23 History carvedilol 25 mg tablet 37.5 mg PO BID Hypertension 01/04/20 02/24/23 History clonidine HCl 0.2 mg tablet 0.2 mg PO DAILY Hypertension 01/04/20 02/24/23 History gabapentin 600 mg tablet 600 mg PO QID peripheal neuropathy 01/04/20 02/24/23 History hydrocodone 10 mg-acetaminophen 1 tab PO QIDP PRN Moderate Pain 01/04/20 02/24/23 History 325 mg tablet (Scale Score 5-6) ibuprofen 600 mg tablet 600 mg PO Q8HP PRN Mild Pain 01/04/20 02/24/23 History (Scale Score 1-4) lisinopril 20 mg tablet 20 mg PO BID Hypertension 01/04/20 02/24/23 History lovastatin 40 mg tablet 40 mg PO HS Cholesterol 01/04/20 02/24/23 History albuterol sulfate 90 mcg/actuation 1 inh inhalation Q4HP PRN 01/15/20 02/24/23 History aerosol inhaler Shortness Of Breath bupropion HCl 300 mg 24 hr tablet, 300 mg PO DAILY Anxiety 02/27/22 02/24/23 History extended release buspirone 15 mg tablet 15 mg PO BID Anxiety 02/27/22 02/24/23 History amitriptyline 50 mg tablet 50 mg PO HS Anxiety 02/24/23 02/24/23 History aspirin 81 mg tablet,delayed 81 mg PO DAILY Heart Disease 02/24/23 02/24/23 History release (Adult Low Dose Aspirin) budesonide 160 mcg-glycopyr 9 2 inh inhalation BIDRT Copd 02/24/23 02/24/23 History mcg-formot 4.8 mcg/actuation HFA inhaler (Breztri Aerosphere) furosemide 40 mg tablet 40 mg PO BIDL Fluid 02/24/23 02/24/23 History ipratropium 20 mcg-albuterol 100 1 puff inhalation Q6HP PRN 02/24/23 02/24/23 History mcg/actuation mist for inhalation shortness of breath or wheezing (Combivent Respimat) theophylline 300 mg 300 mg PO AM Copd 02/24/23 02/24/23 History tablet,extended release,12 hr venlafaxine 150 mg 150 mg PO AM Anxiety 02/24/23 02/24/23 History capsule,extended release 24 hr New Prescriptions to Start Prescriptions: Allergies Allergy/AdvReac Type Severity Reaction Status Date / Time Penicillins Allergy Unknown Unknown Verified 06/06/22 13:31 allergy reaction silk Allergy Unknown Unknown Verified 06/06/22 13:31 allergy reaction Exam Data for Last 24 hours Vital signs and Labs for Last 24 Hours: Temp Pulse Resp BP Pulse Ox O2 Del Method O2 Flow Rate 98.4 F 64 18 115/52 L 98 BiPAP 2.5 02/24/23 05:33 02/24/23 05:33 02/24/23 05:33 02/24/23 05:33 02/24/23 05:00 02/24/23 05:33 02/24/23 03:24 Laboratory Results - last 24 hr 02/24/23 03:25: VBG pH 7.23 L, VBG pCO2 80.8 H, VBG pO2 74.9 H, VBG HCO3 33.0 H, VBG Total CO2 35.5 H, VBG O2 Saturation 93.9 H, VBG Base Excess 5.4 H 02/24/23 03:40: WBC 11.7 H, RBC 4.11 L, Hgb 13.7 L, Hct 40.5 L, MCV 98.5 H, MCH 33.3 H, MCHC 33.8, RDW 13.3, Plt Count 107 L, MPV 7.9, Neut % (Auto) 76.0, Lymph % (Auto) 13.8, [place] % (Auto) 7.6, Eos % (Auto) 1.9, Baso % (Auto) 0.7, Neut # (Auto) 8.9 H, Lymph # (Auto) 1.6, [place] # (Auto) 0.9, Eos # (Auto) 0.2, Baso # (Auto) 0.1, Sodium 134 L, Potassium 3.9, Chloride 97 L, Carbon Dioxide 36 H, Anion Gap 4.9 L, BUN 24 H, Creatinine 1.70 H, Estimated Creat Clear 59, Estimated GFR 40 L, Est GFR ( Amer) 48 L, Glucose 113 H, Lactate 0.6 L, Calcium 8.4, Total Bilirubin 0.4, AST 25, ALT 19, Alkaline Phosphatase 79, Troponin I < 0.01, NT-Pro-B Natriuret Pep 553 H, Total Protein 7.0, Albumin 3.9, Globulin 3.1, Albumin/Globulin Ratio 1.3, SARS-CoV-2 (PCR) Not detected, Influenza A Untype (PCR) Not detected, Influenza Type B (PCR) Not detected I & O for Last 24 hours: Intake & Output 02/21/23 02/22/23 02/23/23 02/24/23 23:59 23:59 23:59 23:59 Weight 106.594 kg Constitutional Constitutional: moderate distress, morbidly obese and somnolent *Routine HEENT Exam Head: Present normocephalic and atraumatic Eye: Present EOMI, PERRL and normal accommodation ENT: Present mucous membranes moist *Routine Neck Exam Neck: Present supple, full ROM and trachea midline *Routine Respiratory Exam Respiratory: Present prolonged expiratory phase, respiratory distress, wheezes and diminished air movement *Routine Cardiovascular Exam Cardiovascular: Present RRR, Normal S1 and Normal S2 *Routine Abdominal Exam Abdominal: Present soft, normoactive bowel sounds and obese; Absent organomegaly *Routine Rectal Exam Rectal:: deferred *Routine Genitalia Exam Genitalia:: deferred *Routine Extremities Exam Extremities: Present edema, full ROM and pulses intact; Absent cyanosis or clubbing *Routine Skin Exam Skin: Present intact, dry and warm *Routine Neurological Exam Neurological: Present altered mental status Routine Psychiatric Exam Psychiatric: Present unable to assess H&P: Result Imaging and Cardiology Chest x-ray: Status: image reviewed by me, Preliminary report and final report CT scan - head: Status: image reviewed by me, Preliminary report and final report EKG: Status: image reviewed by me and Preliminary report Assessment and Plan *Assessment and plan (1) Encephalopathy acute: Status: Acute Category: Medical Code(s): G93.40 - Encephalopathy, unspecified (2) Acute on chronic respiratory failure with hypoxia and hypercapnia: Status: Acute Category: Medical Code(s): J96.21 - Acute and chronic respiratory failure with hypoxia; J96.22 - Acute and chronic respiratory failure with hypercapnia (3) THOR (acute kidney injury): Status: Acute Category: Medical Code(s): N17.9 - Acute kidney failure, unspecified (4) CHF (congestive heart failure): Status: Acute Qualifiers: Heart failure chronicity: acute on chronic Heart failure type: unspecif ied Qualified Code(s): I50.9 - Heart failure, unspecified Category: Medical Code(s): I50.9 - Heart failure, unspecified (5) CAD (coronary artery disease): Problem Comment: Coronary artery calcifications- DEC 2019 Status: Acute Qualifiers: Associated angina: with unspecified angina Coronary Disease-Associated Artery/Lesion type: [place] artery [place] vs. transplanted heart: [place] heart Qualified Code(s): I25.119 - Atherosclerotic heart disease of [place] coronary artery with unspecified angina pectoris Category: Medical Code(s): I25.10 - Atherosclerotic heart disease of [place] coronary artery without angina pectoris (6) HTN (hypertension): Status: Chronic Qualifiers: Hypertension type: essential hypertension Qualified Code(s): I10 - Essential (primary) hypertension Category: Medical Code(s): I10 - Essential (primary) hypertension (7) HLD (hyperlipidemia): Status: Chronic Qualifiers: Hyperlipidemia type: mixed hyperlipidemia Qualified Code(s): E78.2 - Mixed hyperlipidemia Category: Medical Code(s): E78.5 - Hyperlipidemia, unspecified (8) Obesity: Status: Acute Qualifiers: Body mass index: BMI 40.0-44.9 Obesity classification: adult class 3 (BMI >= 40) Obesity type: due to excess calories Serious obesity comorbidity presence: with serious comorbidity Qualified Code(s): E66.01 - Morbid (severe) obesity due to excess calories; Z68.41 - Body mass index [BMI]40.0-44.9, adult Category: Medical Code(s): E66.9 - Obesity, unspecified (9) Smoking greater than 30 pack years: Status: Chronic Category: Social Hx Code(s): F17.210 - Nicotine dependence, cigarettes, uncomplicated Plan 2-year-old morbid obese male, current smoker with a history of COPD, chronic respiratory failure on 2.5 L nasal cannula, CAD, hypertension, hyperlipidemia, and CHF presenting to the emergency department for evaluation with concern for altered mental status and respiratory distress. patient was placed on BIPAP, has been getting Duoneb, and IV solumedrol. imaging scanning for trauma reviewed. discussed with ER provider. Agreed for admission > - Acute AMS. Acute Hypercapnic respiratory failure COPD exacerbation Admit patient for medical services. Dispo stepdown On continuous BiPAP, respiratory therapy to assist DuoNeb every 6 Doxycycline IV given at ER. Will continue with IV ceftriaxone empirically SP urine and blood culture pending Keep n.p.o. until mentation improves Monitor vital signs per unit protocol -Acute kidney injury: Likely prerenal : Monitor a.m. lab CMP watch for creatinine -history of congestive heart failure: Does not seem to be overloaded. Will consider gentle IV hydration Other chronic conditions: Hypertension CAD hyperlipidemia Medication reviewed. Will be resumed when mentation improves Patient tolerated p.o. Smoker: On nicotine patch Obesity will complicate aspects of care. Plan discussed with family, they agreed Lovenox for DVT prophylaxis, Protonix IV Patient is limited DNR. DO NOT INTUBATE Rounded on patient after nurse practitioner. Personally examined and interviewed patient. Agree with exam findings and care plan as documented. Repeat ABG performed this morning showing pH 7.29, CO2 61, O2 60. Adjustments made to BiPAP, increased to 22/10. Having improved tidal volumes in the 400 to 600 cc range depending on whether he is asleep or awake. Will monitor through the morning. If does well, will discontinue BiPAP and allow patient to eat lunch. Continue BiPAP while sleeping or at rest. Diuresing x 1 today given elevated BNP and edema on exam. Goal -1 L today
[2023-02-24] MEDS: IPRATROPIUM/ALBUTEROL 3 ML NEB IH ×4 (06:17→23:24)
[2023-02-24 06:50] LABS: Basophils % 0.3 % (0.1-2.0); Eosinophils % 0.4 % (0.1-12.0); Hematocrit 38.6 % (42.0-52.0); Lymphocytes # 0.8 K/mm3 (0.7-4.5); Lymphocytes % 6.9 % (10-50); Mean Corpuscular HGB Conc 33.7 g/dL (31.8-35.4); Mean Corpuscular Volume 97.8 fl (80-94); Mean Platelet Volume 8.1 fl (7.4-10.4); Monocytes # 0.4 K/mm3 (0.1-1.0); Monocytes % 3.3 % (1.7-9.3); Neutrophils # 9.6 K/mm3 (1.8-7.8); Platelet Count 107 K/mm3 (142-424); Red Blood Count 3.95 M/mm3 (4.60-6.20); Red Cell Distribution Width 13.1 % (11.5-17.5); White Blood Count 10.8 K/mm3 (4.8-10.8)
[2023-02-24 06:54] LABS: MANUAL DIFFERENTIAL MANUAL DIFFERENTIAL (MANUAL DIFF)
[2023-02-24 06:58] LABS: Chloride 99 mmol/L (98-107); Sodium 135 mmol/L (136-145)
[2023-02-24 06:59] LABS: Potassium 4.1 mmoL/L (3.5-5.1)
[2023-02-24 07:01] LABS: Alanine Aminotransferase 22 U/L (12-78); Albumin Level 3.7 g/dl (3.5-5.0); Albumin/Globulin Ratio 1.3 (1.1-1.8); Alkaline Phosphatase 77 U/L (38-126); Anion Gap 7.1 mEq/L (5-15); Aspartate Amino Transferase 27 U/L (17-59); Bilirubin,Total 0.5 mg/dl (0.2-1.3); Blood Urea Nitrogen 23 mg/dl (9-20); Calcium 8.5 mg/dl (8.4-10.2); Carbon Dioxide 33 mmol/L (22.0-30.0); Creatinine Clearance Estimated 75 mL/min (50-200); Estimated Glomerular Filt Rate 43 ml/min (>60); GFR (African American) 52 ML/MIN (>60); Globulin 2.9 g/dL (1.3-3.2); Glucose 181 mg/dl (74-100); Total Protein,Serum 6.6 g/dl (6.3-8.2)
[2023-02-24 07:02] LABS: Magnesium 2.3 mg/dl (1.6-2.3)
[2023-02-24 07:14] LABS: Troponin I < 0.01 ng/ml (0.00-0.034)
[2023-02-24 08:07] LABS: ABG Base Excess 2.3 mmol/L (-2.4-2.3); ABG HCO3 28.8 mmhg (22.0-26.0); ABG Oxygen Saturation 91 % (90-100); ABG PH 7.29 mmol/L (7.35-7.45); ABG PO2 60.6 mmhg (80-100); ABG TCO2 30.7 mmhg (23-27)
[2023-02-24 08:08] LABS: Allen's Test Acceptable; Oxygen 30 %; Pressure Support 18/8; Source Left Radial; Vent Rate 18
[2023-02-24 08:09] LABS: ABG PCO2 61.2 mmhg (35.0-45.0)
[2023-02-24 08:10] LABS: Lymphocytes % 8 % (10-50); Monocytes % 4 % (2-9); Neutrophils % 88 % (42-76); Total Cells Counted 100
[2023-02-24 08:11] LABS: Platelet Estimate Slight Decrease
[2023-02-24 08:12] LABS: Macrocytosis 1+
[2023-02-24] MEDS: FUROSEMIDE 40MG/4ML VIAL 80 MG IV (09:40)
[2023-02-24] MEDS: ENOXAPARIN 40MG/0.4ML SYRINGE 40 MG SQ (09:41)
[2023-02-24 09:51] LABS: Troponin I < 0.01 ng/ml (0.00-0.034)
--- NOTE | 2023-02-24 10:02 | HMH.PHAINT1 ---
Pharmacy Intervention Comments: MEDICATION RECONCILIATION COMPLETE USING LIST FROM MOST RECENT PULMONOLOGY OFFICE VISIT (07/2022), EXTERNAL PHARMACY FILL HISTORY, AND DEE REPORT.
[2023-02-24] MEDS: NICOTINE 21MG/24HR PATCH 21 MG TD (14:11)
[2023-02-24] MEDS: HYDROCODONE 10MG/APAP 325MG TAB 1 TAB PO ×2 (14:50→21:00)
[2023-02-24] MEDS: GABAPENTIN 600MG TABLET 600 MG PO ×2 (17:01→20:29)
[2023-02-24 18:32] LABS: Chloride 98 mmol/L (98-107); Sodium 135 mmol/L (136-145)
[2023-02-24 18:36] LABS: Blood Urea Nitrogen 20 mg/dl (9-20); Calcium 8.6 mg/dl (8.4-10.2); Carbon Dioxide 31 mmol/L (22.0-30.0); Creatinine Clearance Estimated 93 mL/min (50-200); Estimated Glomerular Filt Rate 54 ml/min (>60); GFR (African American) 66 ML/MIN (>60); Glucose 155 mg/dl (74-100)
[2023-02-24] MEDS: BUSPIRONE HCL 5 MG TABLET 15 MG PO (20:29)
[2023-02-24] MEDS: CARVEDILOL 25MG TABLET 37.5 MG PO (20:29)
[2023-02-24] MEDS: LISINOPRIL 20MG TABLET 20 MG PO (20:29)
[2023-02-24] MEDS: AMITRIPTYLINE 50MG TABLET 50 MG PO (20:29)
[2023-02-24] MEDS: PANTOPRAZOLE 40MG VIAL 40 MG IV (20:29)
[2023-02-24] MEDS: PRAVASTATIN 40MG TAB 40 MG PO (20:30)
[2023-02-24] MEDS: METHYLPREDNISOLONE SOD SUCC 125MG VIAL 60 MG IV (20:32)
[2023-02-24] MEDS: DOXYCYCLINE HYCL 100 MG TABLET PO (20:47)
--- NOTE | 2023-02-24 22:20 | PC.NURSE ---
Bipap has been placed on patient
[2023-02-25] VITALS (8 sets, daily range): BP systolic 132–152; BP diastolic 67–97; PULSE 60–87; RESP 18–20; TEMP 37.1; O2SAT 92–99; BMI 40.8
[2023-02-25] MEDS: HYDROCODONE 10MG/APAP 325MG TAB 1 TAB PO ×2 (04:46→08:48)
--- NOTE | 2023-02-25 05:08 | PC.NURSE ---
S[employer] notified due to patient concerned about home medication regimen being different than what he has been getting here. Slim states he will make needed changes.
[2023-02-25] MEDS: IPRATROPIUM/ALBUTEROL 3 ML NEB IH (05:40)
[2023-02-25 06:53] LABS: ABG Base Excess 0.9 mmol/L (-2.4-2.3); ABG Oxygen Saturation 97 % (90-100); ABG PCO2 44.7 mmhg (35.0-45.0); ABG PH 7.38 mmol/L (7.35-7.45); ABG PO2 84.3 mmhg (80-100); ABG TCO2 27.3 mmhg (23-27)
[2023-02-25 06:57] LABS: Basophils % 0.1 % (0.1-2.0); Eosinophils % 0.1 % (0.1-12.0); Hematocrit 37.8 % (42.0-52.0); Hemoglobin 13.1 g/dL (14.1-18.0); Lymphocytes # 0.9 K/mm3 (0.7-4.5); Lymphocytes % 9.8 % (10-50); Mean Corpuscular HGB Conc 34.8 g/dL (31.8-35.4); Mean Corpuscular Hemoglobin 33.5 pg (27.0-31.2); Mean Corpuscular Volume 96.3 fl (80-94); Mean Platelet Volume 8.2 fl (7.4-10.4); Monocytes # 0.3 K/mm3 (0.1-1.0); Monocytes % 2.8 % (1.7-9.3); Neutrophils # 7.9 K/mm3 (1.8-7.8); Neutrophils % 87.3 % (37.0-80.0); Platelet Count 134 K/mm3 (142-424); Red Blood Count 3.92 M/mm3 (4.60-6.20); Red Cell Distribution Width 13.3 % (11.5-17.5); White Blood Count 9.1 K/mm3 (4.8-10.8)
[2023-02-25 06:59] LABS: MANUAL DIFFERENTIAL MANUAL DIFFERENTIAL (MANUAL DIFF)
[2023-02-25 07:07] LABS: Alanine Aminotransferase 22 U/L (12-78); Albumin Level 3.8 g/dl (3.5-5.0); Albumin/Globulin Ratio 1.2 (1.1-1.8); Alkaline Phosphatase 67 U/L (38-126); Anion Gap 5.8 mEq/L (5-15); Aspartate Amino Transferase 24 U/L (17-59); Bilirubin,Total 0.5 mg/dl (0.2-1.3); Blood Urea Nitrogen 17 mg/dl (9-20); Calcium 8.8 mg/dl (8.4-10.2); Carbon Dioxide 32 mmol/L (22.0-30.0); Chloride 98 mmol/L (98-107); Creatinine Clearance Estimated 122 mL/min (50-200); Estimated Glomerular Filt Rate 95 ml/min (>60); GFR (African American) 115 ML/MIN (>60); Globulin 3.1 g/dL (1.3-3.2); Glucose 147 mg/dl (74-100); Magnesium 2.2 mg/dl (1.6-2.3); Potassium 3.8 mmoL/L (3.5-5.1); Sodium 132 mmol/L (136-145); Total Protein,Serum 6.9 g/dl (6.3-8.2)
--- NOTE | 2023-02-25 07:10 | PC.NURSE ---
Patient has rested well this shift. Wore bipap most this shift. No acute changes noted. AOx4.
--- NOTE | 2023-02-25 07:25 | EXP.DC.SUM ---
General Admission date:: 02/24/23 Discharge date: 02/25/23 HPI HPI HPI: This is a 72-year-old morbid obese male, current smoker with a history of COPD, chronic respiratory failure on 2.5 L nasal cannula, CAD, hypertension, hyperlipidemia, and CHF presenting to the emergency department for evaluation with concern for altered mental status and respiratory distress. History obtained from ER documentation and EMS report since patient mentation state does not cooperate with this interview. According to EMS, they were called to the home of the patient early yesterday morning, the but the patient refused to be transported to the hospital despite low oxygen saturations on his home oxygen. He was alert and oriented at that time, so they left him. They were called to the home again tonight because he is altered and continues to be in respiratory distress. Patient was noted to be hypoxic with an O2 saturation in the 70s on 3.5 L nasal cannula. EMS gave 2 DuoNeb's as well as 125 mg of IV Solu-Medrol prior to arrival, which did not significantly improved his respiratory status. He arrives with a DuoNeb treatment finishing. Patient of note had his left hand jammed in the doorway when rolling into the ED here and complains of left index finger pain. He also has bruising and scrapes to his knees, but he is disoriented and does not contribute much to history to tell me when or how he fell. Patient has also had thick, yellow sputum and continues to smoke. Admitted for treatment and management. Hospital Course Hospital Course Hospital Course: 72-year-old morbid obese male, current smoker with a history of COPD, chronic respiratory failure on 2.5 L nasal cannula, CAD, hypertension, hyperlipidemia, and CHF presenting to the emergency department for evaluation with concern for altered mental status and respiratory distress. patient was placed on BIPAP, has been getting Duoneb, and IV solumedrol. imaging scanning for trauma reviewed. discussed with ER provider. Agreed for admission. Patient responded to BiPAP with gradual improvement in mentation and decrease in pCO2. As his mentation improved and he became alert and oriented x 3, BiPAP was removed and transition to nasal cannula so he could eat. Wore BiPAP at night. Repeat blood gas on morning of discharge had normalized. Stable for discharge home to complete treatment for COPD exacerbation. Problems addressed as follows: - Acute AMS. Acute Hypercapnic respiratory failure COPD exacerbation Patient was admitted to stepdown level of care and initiated on BiPAP. Responded well to DuoNebs. Initiated on steroids and doxycycline for COPD exacerbation. Had gradual improvement in hypercapnia with BiPAP and improved and mentation. Returned to baseline mentation. Recommend resuming home noninvasive positive pressure ventilation when sleeping or napping. Stable on 2 L baseline oxygen. DuoNebs prescribed as patient does not use breathing treatments at home as frequently as he should. Complete antibiotics as ordered, 5 days of antibiotics and steroids total. Follow-up with PCP within the coming weeks. -Acute kidney injury: Likely prerenal, improved during admission. Back to baseline by discharge. Creatinine 0.8 BUN 17 at discharge -history of congestive heart failure: Appears euvolemic during exam if not slightly dry. Tolerated gentle rehydration. Continued home medications. See med rec for full details. No other changes to home medication regimen. Patient clinically stable and tolerating take/p.o. medication. Follow-up with PCP in the next 1 to 2 weeks. Spent 30 minutes in discharge counseling, documentation, chart review, and direct care with patient. Exam Data for Last 24 hours Vital signs and Labs for Last 24 Hours: Temp Pulse Resp BP Pulse Ox O2 Del Method O2 Flow Rate 98.4 F 81 20 143/74 H 92 L Nasal Cannula 3 02/24/23 23:50 02/25/23 05:40 02/25/23 04:00 02/25/23 04:00 02/25/23 05:40 02/25/23 05:40 02/25/23 05:40 FiO2 30 02/24/23 23:25 Laboratory Results - last 24 hr 02/24/23 06:31: Total Counted 100, Neutrophils % (Manual) 88 H, Lymphocytes % (Manual) 8 L, Monocytes % (Manual) 4, Platelet Estimate Slight decrease, Macrocytosis 1+ 02/24/23 07:18: Specimen Source Left radial, O2 % 30, ABG pH 7.29 L, ABG pCO2 61.2 H, ABG pO2 60.6 L, ABG HCO3 28.8 H, ABG Total CO2 30.7 H, ABG O2 Saturation 91, ABG Base Excess 2.3, Myron Test Acceptable, Vent Rate 18 02/24/23 09:25: Troponin I < 0.01 02/24/23 17:58: Sodium 135 L, Potassium 4.0, Chloride 98, Carbon Dioxide 31 H, Anion Gap 10.0, BUN 20, Creatinine 1.30 H, Estimated Creat Clear 93, Estimated GFR 54 L, Est GFR ( Amer) 66 D, Glucose 155 H, Calcium 8.6 02/25/23 06:00: ABG pH 7.38, ABG pCO2 44.7, ABG pO2 84.3, ABG HCO3 26.0, ABG Total CO2 27.3 H, ABG O2 Saturation 97, ABG Base Excess 0.9 02/25/23 06:32: WBC 9.1, RBC 3.92 L, Hgb 13.1 L, Hct 37.8 L, MCV 96.3 H, MCH 33.5 H, MCHC 34.8, RDW 13.3, Plt Count 134 L D, MPV 8.2, Neut % (Auto) 87.3 H, Lymph % (Auto) 9.8 L, Dolores % (Auto) 2.8, Eos % (Auto) 0.1, Baso % (Auto) 0.1, Neut # (Auto) 7.9 H, Lymph # (Auto) 0.9, Dolores # (Auto) 0.3, Eos # (Auto) 0.0, Baso # (Auto) 0.0, Sodium 132 L, Potassium 3.8, Chloride 98, Carbon Dioxide 32 H, Anion Gap 5.8, BUN 17, Creatinine 0.80 D, Estimated Creat Clear 122, Estimated GFR 95, Est GFR ( Amer) 115 D, Glucose 147 H, Calcium 8.8, Magnesium 2.2, Total Bilirubin 0.5, AST 24, ALT 22, Alkaline Phosphatase 67, Total Protein 6.9, Albumin 3.8, Globulin 3.1, Albumin/Globulin Ratio 1.2 I & O for Last 24 hours: Intake & Output 02/22/23 02/23/23 02/24/23 02/25/23 23:59 23:59 23:59 23:59 Intake Total 990 / 1110 120 / 120 Output Total 1710 / 1710 0 / 0 Balance -720 / -600 120 / 120 Weight 127.545 kg 129.302 kg Constitutional Constitutional: no acute distress, morbidly obese and chronically ill appearing *Routine HEENT Exam Head: Present normocephalic Eye: Present EOMI and PERRL ENT: Present mucous membranes moist *Routine Neck Exam Neck: Present supple; Absent lymphadenopathy *Routine Respiratory Exam Respiratory: Present prolonged expiratory phase and diminished air movement; Absent rhonchi, wheezes or crackles *Routine Cardiovascular Exam Cardiovascular: Present RRR *Routine Abdominal Exam Abdominal: Present soft and normoactive bowel sounds; Absent tenderness *Routine Extremities Exam Extremities: Absent cyanosis, clubbing or edema *Routine Skin Exam Skin: Present warm; Absent rash *Routine Neurological Exam Neurological: Present alert, oriented X3 and moving all extremities; Absent altered mental status Results Data Completed and Pending Labs on day of discharge: Labs from last 24 hours 02/25/23 02/25/23 02/24/23 06:32 06:00 17:58 WBC 9.1 RBC 3.92 L Hgb 13.1 L Hct 37.8 L MCV 96.3 H MCH 33.5 H MCHC 34.8 RDW 13.3 Plt Count 134 L D MPV 8.2 Neut % (Auto) 87.3 H Lymph % (Auto) 9.8 L Dolores % (Auto) 2.8 Eos % (Auto) 0.1 Baso % (Auto) 0.1 Neut # (Auto) 7.9 H Lymph # (Auto) 0.9 Dolores # (Auto) 0.3 Eos # (Auto) 0.0 Baso # (Auto) 0.0 Total Counted Neutrophils % (Manual) Lymphocytes % (Manual) Monocytes % (Manual) Platelet Estimate Macrocytosis Specimen Source O2 % ABG pH 7.38 ABG pCO2 44.7 ABG pO2 84.3 ABG HCO3 26.0 ABG Total CO2 27.3 H ABG O2 Saturation 97 ABG Base Excess 0.9 Myron Test Vent Rate Sodium 132 L 135 L Potassium 3.8 4.0 Chloride 98 98 Carbon Dioxide 32 H 31 H Anion Gap 5.8 10.0 BUN 17 20 Creatinine 0.80 D 1.30 H Estimated Creat Clear 122 93 Estimated GFR 95 54 L Est GFR ( Amer) 115 D 66 D Glucose 147 H 155 H Calcium 8.8 8.6 Magnesium 2.2 Total Bilirubin 0.5 AST 24 ALT 22 Alkaline Phosphatase 67 Troponin I Total Protein 6.9 Albumin 3.8 Globulin 3.1 Albumin/Globulin Ratio 1.2 02/24/23 02/24/23 02/24/23 09:25 07:18 06:31 WBC RBC Hgb Hct MCV MCH MCHC RDW Plt Count MPV Neut % (Auto) Lymph % (Auto) Dolores % (Auto) Eos % (Auto) Baso % (Auto) Neut # (Auto) Lymph # (Auto) Dolores # (Auto) Eos # (Auto) Baso # (Auto) Total Counted 100 Neutrophils % (Manual) 88 H Lymphocytes % (Manual) 8 L Monocytes % (Manual) 4 Platelet Estimate Slight decrease Macrocytosis 1+ Specimen Source Left radial O2 % 30 ABG pH 7.29 L ABG pCO2 61.2 H ABG pO2 60.6 L ABG HCO3 28.8 H ABG Total CO2 30.7 H ABG O2 Saturation 91 ABG Base Excess 2.3 Myron Test Acceptable Vent Rate 18 Sodium Potassium Chloride Carbon Dioxide Anion Gap BUN Creatinine Estimated Creat Clear Estimated GFR Est GFR ( Amer) Glucose Calcium Magnesium Total Bilirubin AST ALT Alkaline Phosphatase Troponin I < 0.01 Total Protein Albumin Globulin Albumin/Globulin Ratio DS: Diagnosis Discharge Diagnosis (1) Encephalopathy acute: Status: Acute Code(s): G93.40 - Encephalopathy, unspecified (2) Acute on chronic respiratory failure with hypoxia and hypercapnia: Status: Acute Code(s): J96.21 - Acute and chronic respiratory failure with hypoxia; J96.22 - Acute and chronic respiratory failure with hypercapnia (3) THOR (acute kidney injury): Status: Acute Code(s): N17.9 - Acute kidney failure, unspecified (4) CHF (congestive heart failure): Status: Acute Code(s): I50.9 - Heart failure, unspecified Qualifiers: Heart failure chronicity: acute on chronic Heart failure type: unspecified Qualified Code(s): I50.9 - Heart failure, unspecified (5) CAD (coronary artery disease): Status: Acute Code(s): I25.10 - Atherosclerotic heart disease of si[place] coronary artery without angina pectoris Qualifiers: Associated angina: with unspecified angina Coronary Disease-Associated Artery/Lesion type: [place] artery [place] vs. transplanted heart: si[place] heart Qualified Code(s): I25.119 - Atherosclerotic heart disease of [place] coronary artery with unspecified angina pectoris Problem details: Coronary artery calcifications- DEC 2019 (6) HTN (hypertension): Status: Chronic Code(s): I10 - Essential (primary) hypertension Qualifiers: Hypertension type: essential hypertension Qualified Code(s): I10 - Essential (primary) hypertension (7) HLD (hyperlipidemia): Status: Chronic Code(s): E78.5 - Hyperlipidemia, unspecified Qualifiers: Hyperlipidemia type: mixed hyperlipidemia Qualified Code(s): E78.2 - Mixed hyperlipidemia (8) Obesity: Status: Acute Code(s): E66.9 - Obesity, unspecified Qualifiers: Body mass index: BMI 40.0-44.9 Obesity classification: adult class 3 (BMI >= 40) Obesity type: due to excess calories Serious obesity comorbidity presence: with serious comorbidity Qualified Code(s): E66.01 - Morbid (severe) obesity due to excess calories; Z68.41 - Body mass index [BMI]40.0-44.9, adult (9) Smoking greater than 30 pack years: Status: Chronic Code(s): F17.210 - Nicotine dependence, cigarettes, uncomplicated Meds Home Medications and Allergies Home Medications Medication Instructions Recorded Confirmed Type amlodipine 10 mg tablet 10 mg PO DAILY High Blood Pressure 01/04/20 02/24/23 History baclofen 10 mg tablet 10 mg PO QID MUSCLE SPASMS 01/04/20 02/24/23 History carvedilol 25 mg tablet 37.5 mg PO BID Hypertension 01/04/20 02/24/23 History clonidine HCl 0.2 mg tablet 0.2 mg PO DAILY Hypertension 01/04/20 02/24/23 History gabapentin 600 mg tablet 600 mg PO QID peripheal neuropathy 01/04/20 02/24/23 History hydrocodone 10 mg-acetaminophen 1 tab PO QIDP PRN Moderate Pain 01/04/20 02/24/23 History 325 mg tablet (Scale Score 5-6) ibuprofen 600 mg tablet 600 mg PO Q8HP PRN Mild Pain 01/04/20 02/24/23 History (Scale Score 1-4) lisinopril 20 mg tablet 20 mg PO BID Hypertension 01/04/20 02/24/23 History lovastatin 40 mg tablet 40 mg PO HS Cholesterol 01/04/20 02/24/23 History albuterol sulfate 90 mcg/actuation 1 inh inhalation Q4HP PRN 01/15/20 02/24/23 History aerosol inhaler Shortness Of Breath bupropion HCl 300 mg 24 hr tablet, 300 mg PO DAILY Anxiety 02/27/22 02/24/23 History extended release buspirone 15 mg tablet 15 mg PO BID Anxiety 02/27/22 02/24/23 History amitriptyline 50 mg tablet 50 mg PO HS Anxiety 02/24/23 02/24/23 History aspirin 81 mg tablet,delayed 81 mg PO DAILY Heart Disease 02/24/23 02/24/23 History release (Adult Low Dose Aspirin) budesonide 160 mcg-glycopyr 9 2 inh inhalation BIDRT Copd 02/24/23 02/24/23 History mcg-formot 4.8 mcg/actuation HFA inhaler (Breztri Aerosphere) doxycycline hyclate 100 mg tablet 100 mg PO BID 4 days #7 tabs 02/24/23 Rx furosemide 40 mg tablet 40 mg PO BIDL Fluid 02/24/23 02/24/23 History ipratropium 0.5 mg-albuterol 3 mg 3 ml inhalation Q6HP PRN shortness 02/24/23 Rx (2.5 mg base)/3 mL nebulization of breath or wheezing 30 days #100 soln ea ipratropium 20 mcg-albuterol 100 1 puff inhalation Q6HP PRN 02/24/23 02/24/23 History mcg/actuation mist for inhalation shortness of breath or wheezing (Combivent Respimat) prednisone 20 mg tablet 40 mg PO DAILY 3 days #6 tabs 02/24/23 Rx theophylline 300 mg 300 mg PO AM Copd 02/24/23 02/24/23 History tablet,extended release,12 hr venlafaxine 150 mg 150 mg PO AM Anxiety 02/24/23 02/24/23 History capsule,extended release 24 hr cyclobenzaprine 10 mg tablet 10 mg PO QID Muscle spasm 02/25/23 02/25/23 History New Prescriptions to Start Prescriptions: marc hyclate Leighton Pollock ipratropium-albuterol Leighton Pollock prednisone Leighton Pollock Allergies Allergy/AdvReac Type Severity Reaction Status Date / Time Penicillins Allergy Unknown Unknown Verified 06/06/22 13:31 allergy reaction silk Allergy Unknown Unknown Verified 06/06/22 13: allergy reaction Discharge Plan Disposition Patient Disposition: Home, Self-Care Condition: Fair Discharge Order Discharge Orders: Discharge Order (Routine); Ordered 02/25/23 Ordered By: Leighton Pollock Follow up Plan Follow up with: Leighton May [Primary Care Provider] - Enter time for follow up Prescriptions/Medication Reconciliation: New ipratropium-albuterol 0.5 mg-3 mg(2.5 mg base)/3 mL Solution For Nebulization 3 ml inhalation Q6HP PRN (Reason: shortness of breath or wheezing) 30 Days Qty: 100 0RF prednisone 20 mg Tablet 40 mg PO DAILY 3 Days Qty: 6 0RF doxycycline hyclate 100 mg Tablet 100 mg PO BID 4 Days Qty: 7 0RF Continued albuterol sulfate 90 mcg/actuation HFA aerosol inhaler 1 inh INHALATION Q4HP PRN (Reason: Shortness Of Breath) bupropion HCl 300 mg tablet extended release 24 hr 300 mg PO DAILY buspirone 15 mg tablet 15 mg PO BID venlafaxine 150 mg capsule,extended release 24hr 150 mg PO AM theophylline 300 mg tablet extended release 12 hr 300 mg PO AM furosemide 40 mg tablet 40 mg PO BIDL amitriptyline 50 mg tablet 50 mg PO HS Breztri Aerosphere 160-9-4.8 mcg/actuation HFA aerosol inhaler 2 inh inhalation BIDRT aspirin [Adult Low Dose Aspirin] 81 mg tablet,delayed release (DR/EC) 81 mg PO DAILY Combivent Respimat 20-100 mcg/actuation mist 1 puff inhalation Q6HP PRN (Reason: shortness of breath or wheezing) cyclobenzaprine 10 mg tablet 10 mg PO QID carvedilol 25 MG tablet 37.5 mg PO BID gabapentin 600 MG tablet 600 mg PO QID lisinopril 20 MG tablet 20 mg PO BID lovastatin 40 MG tablet 40 mg PO HS hydrocodone-acetaminophen 1 EACH tablet 1 tab PO QIDP PRN (Reason: Moderate Pain (Scale Score 5-6)) clonidine HCl 0.2 MG tablet 0.2 mg PO DAILY baclofen 10 MG tablet 10 mg PO QID amlodipine 10 MG tablet 10 mg PO DAILY ibuprofen 600 MG tablet 600 mg PO Q8HP PRN (Reason: Mild Pain (Scale Score 1-4)) Problem Reconciliation Problems Reviewed?: Yes Patient Discharge Instructions ACTIVITY: Continue current activity DIET: continue same diet Patient Instructions: DI for Chronic Obstructive Pulmonary Disease, DI for Respiratory Failure, DI for Acute Kidney Injury Providers Primary Care Provider: Leighton May Admit Provider: Leighton Pollock Attending Provider: Leighton Pollock
[2023-02-25 07:34] LABS: Lymphocytes % 9 % (10-50); Neutrophils % 91 % (42-76); Platelet Estimate Slight Decrease; RBC Morphology Normal; Total Cells Counted 100
[2023-02-25] MEDS: CARVEDILOL 25MG TABLET 37.5 MG PO (08:39)
[2023-02-25] MEDS: ENOXAPARIN 40MG/0.4ML SYRINGE 40 MG SQ (08:39)
[2023-02-25] MEDS: VENLAFAXINE XR 75MG CAPSULE 150 MG PO (08:40)
[2023-02-25] MEDS: buPROPion HCl SR 150MG TAB 300 MG PO (08:40)
[2023-02-25] MEDS: BUSPIRONE HCL 5 MG TABLET 15 MG PO (08:42)
[2023-02-25] MEDS: ASPIRIN EC 81MG TABLET 81 MG PO (08:42)
[2023-02-25] MEDS: LISINOPRIL 20MG TABLET 20 MG PO (08:42)
[2023-02-25] MEDS: GABAPENTIN 600MG TABLET 600 MG PO (08:43)
[2023-02-25] MEDS: predniSONE 20MG TAB 40 MG PO (08:43)
[2023-02-25] MEDS: DOXYCYCLINE HYCL 100 MG TABLET PO (08:44)
[2023-02-25] MEDS: CYCLOBENZAPRINE 10MG TABLET 10 MG PO (08:48)
--- NOTE | 2023-02-26 14:46 | CARE MANAGER ---
Contacted patient related to hospital discharge. 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 He denies any questions or concerns. JESSICA Camejo
--- NOTE | 2023-03-02 12:16 | PC.NURSE ---
blood culture results show bacillus species, pt was admitted to 2nd given doxycycline, dc with doxycycline, per , pt to be contacted for further evaluation of how they are feeling, appropriate antibiotic given to pt although pt hx makes him a high risk pt. Attempted to call pt via phone number listed in chart, no answer at this time, no voicemail left.
== END 2023-02-25 11:57 | disposition home or self-care (01) ==
LOC: ER 05:23 → 2ND 05:49
PROVIDERS: Nurse Practitioner Family; Admitting Provider Internal Medicine Adolescent Medicine; Emergency Provider Emergency Medicine; PCP Family Medicine; Visit Provider Internal Medicine Adolescent Medicine
DX: G93.40 Encephalopathy, unspecified (principal); J96.21 Acute and chronic respiratory failure with hypoxia; J96.22 Acute and chronic respiratory failure with hypercapnia; N17.9 Acute kidney failure, unspecified; I25.118 Atherosclerotic heart disease of native coronary artery with other forms of angina pectoris; F17.210 Nicotine dependence, cigarettes, uncomplicated; J44.1 Chronic obstructive pulmonary disease with (acute) exacerbation; E66.01 Morbid (severe) obesity due to excess calories; Z68.41 Body mass index [BMI] 40.0-44.9, adult; I11.0 Hypertensive heart disease with heart failure; I50.9 Heart failure, unspecified; E78.5 Hyperlipidemia, unspecified; Z79.899 Other long term (current) drug therapy
CPT/HCPCS: 36415; 70450; 71045; 72125; 73130; 80048; 80053; 82803; 83605; 83735; 83880; 84484; 85007; 85025; 87040; 87636; 93005; 94640; 94660; 99285; G0378

== ENCOUNTER 2023-11-22 14:58 | Outpatient (CLI) | payer OTHER, SELFPAY ==
--- NOTE | 2023-11-22 15:04 | CT_ITS ---
FINAL REPORT TECHNIQUE: Axial images were obtained from the lung apex to the mid abdomen by computed tomography. This study was performed with techniques to keep radiation doses as low as reasonably achievable (ALARA). Individualized dose reduction techniques using automated exposure control or adjustment of mA and/or kV according to the patient's size were employed. CLINICAL HISTORY: SCREENING, current smoker, 60 years, 1/2ppd, copd COMPARISON: 05/11/2022 FINDINGS: CHEST CT LOW DOSE CTDI vol (mGy): 2.90 DLP (mGy-cm): 111.25 There is no axillary adenopathy. There is no hilar or mediastinal adenopathy. The heart is normal in size. There is no pericardial or pleural effusion. There has been interval resolution in the previously identified nodular infiltrate in the lung bases. No suspicious mass or nodule is identified. Limited images of the upper abdomen are unremarkable. IMPRESSION: Lung RADS category 1. Recommend 12 month follow-up low-dose chest CT. Reviewed, Interpreted and Dictated by Tirso Warren MD Transcribed by Millie Quintanilla Authenticated and [facility]
== END 2023-11-22 23:59 | disposition home or self-care (01) ==
LOC: RAD 14:59
PROVIDERS: PCP Family Medicine; Visit Provider Nurse Practitioner
DX: J44.9 Chronic obstructive pulmonary disease, unspecified (principal); F17.210 Nicotine dependence, cigarettes, uncomplicated
CPT/HCPCS: 71271

== ENCOUNTER 2024-06-22 22:08 | Emergency (ER) | payer MEDICARE, SELFPAY ==
[2024-06-22 22:16] VITALS: BP 134/60; PULSE 57; RESP 18; TEMP 36.9; O2SAT 95; BMI 35.4
--- NOTE | 2024-06-22 22:44 | CT_ITS ---
PROCEDURE INFORMATION: Exam: CT Pelvis Without Contrast, Skeleton Exam date and time: 06/22/2024 11:06 PM Age: 73 years old Clinical indication: Injury or trauma; Fall; Additional info: Fall, head injury, R hip pain TECHNIQUE: Imaging protocol: Computed tomography of the pelvis without contrast. Exam focused on the skeleton. Radiation optimization: All CT scans at this facility use at least one of these dose optimization techniques: automated exposure control; mA and/or kV adjustment per patient size (includes targeted exams where dose is matched to clinical indication); or iterative reconstruction. COMPARISON: CR XR HIP RT 2-3V W/PELVIS 06/22/2024 10:49 PM FINDINGS: Appendix: No CT evidence of acute appendicitis. Vasculature: Vascular calcifications Reproductive: Enlarged prostate Urinary bladder: Fluid in the urinary bladder. Bones/joints: No acute fracture is identified. Soft tissues: Mild subcutaneous edema IMPRESSION: No acute fracture is identified.
--- NOTE | 2024-06-22 22:44 | XR_ITS ---
PROCEDURE INFORMATION: Exam: XR Chest Exam date and time: 06/22/2024 10:49 PM Age: 73 years old Clinical indication: Pain; Chest pressure; Additional info: Fall, head injury, R hip pain TECHNIQUE: Imaging protocol: Radiologic exam of the chest. Views: 1 view. COMPARISON: CT LUNG SCREENING 11/22/2023 3:06 PM FINDINGS: Lungs: Probable atelectatic changes. Pleural spaces: No pneumothorax. Heart/Mediastinum: Unremarkable cardiomediastinal silhouette. Bones/joints: No acute osseous findings. IMPRESSION: No focal consolidation.
--- NOTE | 2024-06-22 22:44 | CT_ITS ---
PROCEDURE INFORMATION: Exam: CT Cervical Spine Without Contrast Exam date and time: 06/22/2024 11:03 PM Age: 73 years old Clinical indication: Injury or trauma; Fall; Additional info: Fall, head injury, R hip pain TECHNIQUE: Imaging protocol: Computed tomography of the cervical spine without contrast. Radiation optimization: All CT scans at this facility use at least one of these dose optimization techniques: automated exposure control; mA and/or kV adjustment per patient size (includes targeted exams where dose is matched to clinical indication); or iterative reconstruction. COMPARISON: CT CERVICAL SPINE WO CON 02/24/2023 4:10 AM FINDINGS: Bones: No acute fracture. Normal alignment. No significant disc bulge or herniation. Borderline developmental cervical spinal canal stenosis and superimposed multilevel degenerative disc and joint disease. Mild facet arthropathy at multiple levels. Mild neural foraminal narrowing. Lungs: Mild scarring in the right lung apex. Soft tissues: Unremarkable. IMPRESSION: No evidence of acute fracture or traumatic malalignment in the cervical spine..
--- NOTE | 2024-06-22 22:44 | CT_ITS ---
PROCEDURE INFORMATION: Exam: CT Head Without Contrast Exam date and time: 06/22/2024 11:01 PM Age: 73 years old Clinical indication: Injury or trauma; Fall; Additional info: Fall, head injury, R hip pain TECHNIQUE: Imaging protocol: Computed tomography of the head without contrast. Radiation optimization: All CT scans at this facility use at least one of these dose optimization techniques: automated exposure control; mA and/or kV adjustment per patient size (includes targeted exams where dose is matched to clinical indication); or iterative reconstruction. COMPARISON: CT HEAD/BRAIN WO CON 02/24/2023 4:10 AM FINDINGS: Brain: Suspected hyperdensity along the inferior foramen magnum and the ventral anterior cervical spine, (series 3, images 1-6), is a nonspecific finding otherwise, no acute intra- or extra axial fluid collections are identified. The basal cisterns are patent. No mass effect or midline shift is seen. The cartwright-white matter differentiation is mildly obscured due to motion artifacts. Periventricular hypoattenuation are nonspecific but likely the sequela of chronic small vessel ischemic disease. There is a partial empty sella. Cerebral ventricles: There is mild cerebral volume loss and ex vacuo dilation of the ventricles.. Paranasal sinuses: There is mild paranasal sinus disease.. Mastoid air cells: The mastoid air cells appear grossly clear. Orbital cavities: The orbits appear normal. Bones: No acute calvarial fracture is identified. Soft tissues: There is a large soft tissue swelling/hematoma along the right parietal scalp, with overlying scalp skin lacerations. Vasculature: There are atherosclerotic calcifications of the carotid siphons. IMPRESSION: 1. Suspected hyperdensity along the inferior foramen magnum and the ventral anterior cervical spine this finding is nonspecific and could represent trace extra-axial blood products. A single follow-up is recommended within 24 hours to document stability. 2. Slight thickening along the tentorial leaflets and posterior falx is nonspecific finding however there is subdural hemorrhage can not be excluded in the setting of head trauma. A single follow-up, within 24 hours is recommended to document stability. 3. Otherwise, no evidence of acute intracranial hemorrhage. 4. Large right parietal scalp soft tissue swelling/hematoma , with overlying skin lacerations.
--- NOTE | 2024-06-22 22:44 | XR_ITS ---
PROCEDURE INFORMATION: Exam: XR Right Hip Exam date and time: 06/22/2024 10:49 PM Age: 73 years old Clinical indication: Hip pain; Right hip; Additional info: Fall, head injury, R hip pain TECHNIQUE: Imaging protocol: Radiologic exam of the right hip. Views: 2 or 3 views hip with pelvis when performed. COMPARISON: CR XR HIP RT 2-3V W/PELVIS 06/22/2024 10:49 PM FINDINGS: Bones/joints: The sacrum is partially obscured by overlying stool and/or bowel air. No evidence of acute fracture. Soft tissues: Limited study secondary to patient body habitus. IMPRESSION: No evidence of acute fracture. If symptoms persist, recommend repeat radiograph in 5-7 days.
--- NOTE | 2024-06-22 22:45 | HMH.EDGENADL ---
Discharge Plan Disposition Patient Disposition: Xfer Short-Term Hosp Condition: Fair Prescriptions Prescriptions: No Action albuterol sulfate 90 mcg/actuation HFA aerosol inhaler 1 inh INHALATION Q4HP PRN (Reason: Shortness Of Breath) bupropion HCl 300 mg tablet extended release 24 hr 300 mg PO DAILY buspirone 15 mg tablet 15 mg PO BID Breztri Aerosphere 160-9-4.8 mcg/actuation HFA aerosol inhaler 2 inh inhalation BID 90 Days Qty: 10.7 3RF venlafaxine 150 mg capsule,extended release 24hr 150 mg PO AM theophylline 300 mg tablet extended release 12 hr 300 mg PO AM furosemide 40 mg tablet 40 mg PO BIDL amitriptyline 50 mg tablet 50 mg PO HS Breztri Aerosphere 160-9-4.8 mcg/actuation HFA aerosol inhaler 2 inh inhalation BIDRT aspirin [Adult Low Dose Aspirin] 81 mg tablet,delayed release (DR/EC) 81 mg PO DAILY Combivent Respimat 20-100 mcg/actuation mist 1 puff inhalation Q6HP PRN (Reason: shortness of breath or wheezing) ipratropium-albuterol 0.5 mg-3 mg(2.5 mg base)/3 mL Solution For Nebulization 3 ml inhalation Q6HP PRN (Reason: shortness of breath or wheezing) 30 Days Qty: 100 0RF prednisone 20 mg Tablet 40 mg PO DAILY 3 Days Qty: 6 0RF doxycycline hyclate 100 mg Tablet 100 mg PO BID 4 Days Qty: 7 0RF cyclobenzaprine 10 mg tablet 10 mg PO QID carvedilol 25 MG tablet 37.5 mg PO BID gabapentin 600 MG tablet 600 mg PO QID lisinopril 20 MG tablet 20 mg PO BID lovastatin 40 MG tablet 40 mg PO HS hydrocodone-acetaminophen 1 EACH tablet 1 tab PO QIDP PRN (Reason: Moderate Pain (Scale Score 5-6)) clonidine HCl 0.2 MG tablet 0.2 mg PO DAILY baclofen 10 MG tablet 10 mg PO QID amlodipine 10 MG tablet 10 mg PO DAILY ibuprofen 600 MG tablet 600 mg PO Q8HP PRN (Reason: Mild Pain (Scale Score 1-4)) Referrals Follow up/Referrals: Leighton May [Primary Care Provider] - See instructions Activity Restrictions/Add. Instructions Additional Instructions/Restrictions: Get your billy and sutures removed in 7 days. Follow-up with primary care doctor. Please return the emerged part with any new, concerning, worsening symptoms including but not limited to signs concerning for infection including redness, swelling, discharge of pus, worsening pain. Clinical Impressions Clinical Impression: Acute pain of right hip, Complex laceration of scalp Fall Qualifiers: Encounter type: initial encounter Qualified Code(s): W19.XXXA - Unspecified fall, initial encounter Stand Alone Forms Stand Alone Forms: Transfer Record - ED Print Language Print Language: Estonian Discharge ED Provider: David Melvin General Adult HPI <David Melvin MD - Last Filed: 06/23/24 00:44> General Chief complaint: Fall Stated complaint: Fall and hit head Time Seen by Provider: 06/22/24 22:19 Mode of Arrival: EMS Source of Information: Patient and EMS Description of Symptoms (Recalled from ER Triage Doc. by RN): Pt presents from home in [facility] by [facility] ems for evaluation after a fall today. Pt states he lost his balance today while trying to unload his truck due to the uneven terrain. Pt hit his head on the hub cap of the tire. Pt states he did not have loc and is not on blood thinners. Pt has a laceration to the top of his head, skin tear to right forearm, bruising to right shoulder, and right hip pain. Pt noted to have several various stages of healing bruises and patient states he has been having frequent falls. History of Present Illness HPI narrative: This is a 73-year-old male with a past medical history of CHF, hypertension, hyperlipidemia, COPD, chronic back pain who presents after a fall. States that he lost his balance while trying to unload his truck and hit his head on the hub Of the tire. Did not have loss of conscious. Takes aspirin but no other anticoagulation. Reports scalp laceration and right hip pain. States that he has been having a lot of frequent falls lately. Denies any worsening back pain or neck pain. Related Data Home Medications ?Medication ?Instructions ?Recorded ?Confirmed amlodipine 10 mg tablet 10 mg PO DAILY High Blood Pressure 01/04/20 02/24/23 baclofen 10 mg tablet 10 mg PO QID MUSCLE SPASMS 01/04/20 02/24/23 carvedilol 25 mg tablet 37.5 mg PO BID Hypertension 01/04/20 02/24/23 clonidine HCl 0.2 mg tablet 0.2 mg PO DAILY Hypertension 01/04/20 02/24/23 gabapentin 600 mg tablet 600 mg PO QID peripheal neuropathy 01/04/20 02/24/23 hydrocodone 10 mg-acetaminophen 1 tab PO QIDP PRN Moderate Pain 01/04/20 02/24/23 325 mg tablet (Scale Score 5-6) ibuprofen 600 mg tablet 600 mg PO Q8HP PRN Mild Pain 01/04/20 02/24/23 (Scale Score 1-4) lisinopril 20 mg tablet 20 mg PO BID Hypertension 01/04/20 02/24/23 lovastatin 40 mg tablet 40 mg PO HS Cholesterol 01/04/20 02/24/23 albuterol sulfate 90 mcg/actuation 1 inh inhalation Q4HP PRN 01/15/20 02/24/23 aerosol inhaler Shortness Of Breath bupropion HCl 300 mg 24 hr tablet, 300 mg PO DAILY Anxiety 02/27/22 02/24/23 extended release buspirone 15 mg tablet 15 mg PO BID Anxiety 02/27/22 02/24/23 amitriptyline 50 mg tablet 50 mg PO HS Anxiety 02/24/23 02/24/23 aspirin 81 mg tablet,delayed 81 mg PO DAILY Heart Disease 02/24/23 02/24/23 release (Adult Low Dose Aspirin) budesonide 160 mcg-glycopyr 9 2 inh inhalation BIDRT Copd 02/24/23 02/24/23 mcg-formot 4.8 mcg/actuation HFA inhaler (Breztri Aerosphere) furosemide 40 mg tablet 40 mg PO BIDL Fluid 02/24/23 02/24/23 ipratropium 20 mcg-albuterol 100 1 puff inhalation Q6HP PRN 02/24/23 02/24/23 mcg/actuation mist for inhalation shortness of breath or wheezing (Combivent Respimat) theophylline 300 mg 300 mg PO AM Copd 02/24/23 02/24/23 tablet,extended release,12 hr venlafaxine 150 mg 150 mg PO AM Anxiety 02/24/23 02/24/23 capsule,extended release 24 hr cyclobenzaprine 10 mg tablet 10 mg PO QID Muscle spasm 02/25/23 02/25/23 Previous Rx's ?Medication ?Instructions ?Recorded doxycycline hyclate 100 mg tablet 100 mg PO BID 4 days #7 tabs 02/24/23 ipratropium 0.5 mg-albuterol 3 mg 3 ml inhalation Q6HP PRN shortness 02/24/23 (2.5 mg base)/3 mL nebulization of breath or wheezing 30 days #100 soln ea prednisone 20 mg tablet 40 mg (2 x 20 mg) PO DAILY 3 days 02/24/23 #6 tabs budesonide 160 mcg-glycopyr 9 2 inh inhalation BID 90 days #10.7 05/21/23 mcg-formot 4.8 mcg/actuation HFA grams inhaler (Breztri Aerosphere) Allergies Allergy/AdvReac Type Severity Reaction Status Date / Time Penicillins Allergy Unknown Unknown Verified 06/06/22 13:31 allergy reaction silk Allergy Unknown Unknown Verified 06/06/22 13:31 allergy reaction PFSH <David Melvin MD - Last Filed: 06/23/24 00:44> [facility] Disclaimer: The information contained in this section may have been updated after the patient was seen, as this information can be updated by other users. Medical History Chronic respiratory failure with hypoxia COPD mixed type COPD mixed type Dyspnea Dyspnea on exertion Encounter for monitoring of theophylline therapy History of COPD MRSA infection Screening for lung cancer Smoking greater than 30 pack years Tobacco abuse Tobacco abuse counseling Surgical History No history of previous surgery Family History Other Asthma Diabetes Hypertension Social History (Updated 02/24/23 @ 06:07 by Vicki Huff RN) Smoking Status: Current every day smoker alcohol intake: former current occupational status: other Travel in the last 8 weeks?: None Have you lived/traveled outside US in past 30 days?: No Contact w/someone who lives/traveled outside US past 30 days?: No Exposure to someone with infectious disease in past 14 days?: No Do you have a fever (greater than 100.4 F or 38 C)?: No Have you tested positive for COVID-19?: No Exposed to someone with COVID-19 in past 14 days?: No Do you have a sore throat?: No Do you have a cough?: No Do you have any weakness?: No Do you have any diarrhea?: No Are you experiencing any unusual bleeding?: No Do you have any muscle aches/pain?: No Do you have any abdominal pain?: No Are you experiencing loss of taste or smell?: No Other Medical History Have you received the Flu Vaccine for this season: No Have you received the Pneumonia Vaccine: No <David Melvin MD - Last Filed: 06/23/24 00:44> ROS Obtained: Yes All systems reviewed & no additional complaints except as documented Physical Exam <David Melvin MD - Last Filed: 06/23/24 00:44> General General appearance: alert and in no apparent distress Head Head exam: other (Approximately 12 cm stellate scalp laceration on the crown) Eye Eye exam: Present normal appearance, PERRL and EOMI ENT ENT exam: Present normal exam Neck Neck exam: Present normal inspection and full ROM; Absent tenderness Chest Chest inspection: Present normal inspection and symmetric chest wall rise; Absent tenderness Respiratory Respiratory exam: Present normal lung sounds bilaterally; Absent respiratory distress Cardiovascular Cardiovascular exam: Present regular rate and normal rhythm Abdominal Exam Abdominal exam: Present soft; Absent distention, tenderness, guarding or rebound Extremities Exam Extremities exam: Present other (Tenderness to the right hip. No deformity. Range of motion intact. Neurovascular intact distally.) Neurological Exam Neurological exam: Present alert and oriented X3 Psychiatric Psychiatric exam: Present normal affect and normal mood Skin Skin exam: Present warm and dry Medical Decision Making <David Melvin MD - Last Filed: 06/23/24 00:44> Medical Records Medical records reviewed: Yes I reviewed the patient's medical records. Screening: Per USPSTF and CDC recommendations, given the prevalence of disease in our region, it is our hospital?s policy to screen for HIV and viral Hepatitis for all patients aged 18 and over and those with ongoing risk factors. MR Comment: Hospital medicine discharge summary from 02/25/2023 notable for patient's past medical history as noted above Jaime Inquiry Pt receiving controlled substance: No Vital Signs: 06/22/24 22:16 06/22/24 23:11 06/22/24 23:30 Temperature 98.5 F Temperature Source Oral Pulse Rate 59 L 57 L Pulse Rate [Right] 57 L Respiratory Rate 18 16 10 L Blood Pressure 134/60 116/48 L Blood Pressure [Right Arm] 134/60 Blood Pressure Mean [Right Arm] 84 Blood Pressure Source Blood Pressure Source [Right Arm] Automatic Cuff Blood Pressure Position Blood Pressure Position [Right Arm] Sitting 02 Sat by Pulse Oximetry 95 86 L 96 Oxygen Delivery Method Nasal Cannula Oxygen Flow Rate (LPM) 3 06/23/24 00:00 06/23/24 00:30 06/23/24 03:00 Temperature 98.0 F Temperature Source Oral Pulse Rate 56 L 55 L Pulse Rate [Right] Respiratory Rate 13 17 18 Blood Pressure 135/64 137/118 H 127/60 Blood Pressure [Right Arm] Blood Pressure Mean [Right Arm] Blood Pressure Source Automatic Cuff Blood Pressure Source [Right Arm] Blood Pressure Position Sitting Blood Pressure Position [Right Arm] 02 Sat by Pulse Oximetry 96 Oxygen Delivery Method Nasal Cannula Oxygen Flow Rate (LPM) 3 Lab Data Lab Results 06/22/24 22:18: WBC 7.2, RBC 4.01 L, Hgb 13.1 L, Hct 39.0 L, MCV 97.3 H, MCH 32.7 H, MCHC 33.6, RDW 12.3, Plt Count 119 L, MPV 10.1, Neut % (Auto) 56.5, Lymph % (Auto) 30.4, [place] % (Auto) 8.7, Eos % (Auto) 3.3, Baso % (Auto) 0.8, Neut # (Auto) 4.1, Lymph # (Auto) 2.2, [place] # (Auto) 0.6, Eos # (Auto) 0.2, Baso # (Auto) 0.1, Sodium 137, Potassium 4.3, Chloride 100, Carbon Dioxide 37 H, Anion Gap 4.3 L, BUN 17, Creatinine 1.00, Estimated Creat Clear 104, Estimated GFR 73, Est GFR ( Amer) 89, Glucose 76, Calcium 9.0, Total Bilirubin 0.5, AST 34, ALT 22, Alkaline Phosphatase 69, Total Protein 6.6, Albumin 3.8, Globulin 2.8, Albumin/Globulin Ratio 1.4 06/22/24 22:18 06/22/24 22:18 Orders (Tests/Meds): ED MEDICATIONS Discontinued Medications Generic Name Dose Route Start Last Admin Trade Name Freq PRN Reason Stop Dose Admin Baclofen 10 mg 06/23/24 02:42 06/23/24 02:53 Baclofen 10mg Tablet PO 06/23/24 02:43 10 mg ONCE ONE Administration Cyclobenzaprine HCl 5 mg 06/23/24 02:41 06/23/24 02:46 Cyclobenzaprine 10mg Tablet PO 06/23/24 02:42 5 mg ONCE ONE Administration Hydromorphone HCl 0.5 mg 06/22/24 22:44 06/22/24 22:56 Hydromorphone 2mg/Ml Syringe IV 06/22/24 22:45 0.5 mg ONCE ONE Administration Hydromorphone HCl 2 mg 06/23/24 00:34 06/23/24 00:52 Hydromorphone 2mg/Ml Syringe IV 06/23/24 00:35 2 mg ONCE ONE Administration Hydromorphone HCl 0.5 mg 06/23/24 02:51 06/23/24 02:52 Hydromorphone 2mg/Ml Syringe IV 06/23/24 02:52 0.5 mg ONCE ONE Administration Hydroxyzine Pamoate 50 mg 06/23/24 02:37 06/23/24 02:41 Hydroxyzine Pamoate 25mg Capsule PO 06/23/24 02:38 50 mg ONCE ONE Administration Lidocaine/Epinephrine 20 ml 06/22/24 23:13 06/23/24 00:00 Lidocaine 1% W/Epi 1:100,000 20ml Vial IJ 06/22/24 23:14 20 ml ONCE ONE Administration Nicotine 21 mg 06/23/24 02:45 06/23/24 02:51 Nicotine 21mg/24hr Patch TD 06/23/24 02:46 21 mg ONCE ONE Administration Venlafaxine HCl 37.5 mg 06/23/24 02:49 06/23/24 02:53 Venlafaxine 37.5mg Tablet PO 06/23/24 02:50 Not Given ONCE ONE ORDERS Category Date Time Status CT bony pelvis Stat Cat Scan 06/22/24 22:[address] cervical spine wo con Stat Cat Scan 06/22/24 22:[address] head/brain wo con Stat Cat Scan 06/22/24 22:44 Completed Chest XR -- portable [XR chest portable] Stat Exams 06/22/24 22:44 Completed Hip XR right minimum 2 views [XR hip RT 2-3V w/pelvis] Exams 06/22/24 22:44 Completed Stat CBC w/Auto Diff [Complete Blood Count Auto Diff] Stat Lab 06/22/24 22:18 Completed CMP [Comprehensive Metabolic Panel] Stat Lab 06/22/24 22:18 Completed Medical Decision Narrative: In summary, this 73-year-old male current smoker with a history of COPD, chronic respiratory failure on 2.5 L nasal cannula, CAD, hypertension, hyperlipidemia, and CHF presents to the emergency department today with head injury and right hip pain after a fall. On initial evaluation patient is afebrile, hemodynamically stable, nontoxic-appearing, GCS 15. Differential diagnosis includes but is not limited to intracranial hemorrhage, skull fracture, soft tissue injury, scalp laceration, right hip fracture, dislocation, pelvic fracture. Based on these concerns, I ordered CBC, CMP, CT head, CT C-spine, CT bony pelvis, x-ray imaging of the chest and pelvis and right hip. Patient received Dilaudid for treatment. Tetanus up-to-date. Labs personally reviewed demonstrate unremarkable CBC, unremarkable CMP. XR personally interpreted demonstrates no acute cardiopulmonary pathology or pelvic fractures. CT imaging personally interpreted demonstrates no acute intracranial hemorrhage. Scalp laceration was repaired by me at bedside. See procedure note below for details. Care was handed off to Dr. Cohen pending final CT reads. See below for ultimate disposition. <Eunice Cohen MD - Last Filed: 06/24/24 05:14> Vital Signs: 06/22/24 22:16 06/22/24 23:11 06/22/24 23:30 Temperature 98.5 F Temperature Source Oral Pulse Rate 59 L 57 L Pulse Rate [Right] 57 L Respiratory Rate 18 16 10 L Blood Pressure 134/60 116/48 L Blood Pressure [Right Arm] 134/60 Blood Pressure Mean [Right Arm] 84 Blood Pressure Source Blood Pressure Source [Right Arm] Automatic Cuff Blood Pressure Position Blood Pressure Position [Right Arm] Sitting 02 Sat by Pulse Oximetry 95 86 L 96 Oxygen Delivery Method Nasal Cannula Oxygen Flow Rate (LPM) 3 06/23/24 00:00 06/23/24 00:30 06/23/24 03:00 Temperature 98.0 F Temperature Source Oral Pulse Rate 56 L 55 L Pulse Rate [Right] Respiratory Rate 13 17 18 Blood Pressure 135/64 137/118 H 127/60 Blood Pressure [Right Arm] Blood Pressure Mean [Right Arm] Blood Pressure Source Automatic Cuff Blood Pressure Source [Right Arm] Blood Pressure Position Sitting Blood Pressure Position [Right Arm] 02 Sat by Pulse Oximetry 96 Oxygen Delivery Method Nasal Cannula Oxygen Flow Rate (LPM) 3 Lab Data Lab Results 06/22/24 22:18: WBC 7.2, RBC 4.01 L, Hgb 13.1 L, Hct 39.0 L, MCV 97.3 H, MCH 32.7 H, MCHC 33.6, RDW 12.3, Plt Count 119 L, MPV 10.1, Neut % (Auto) 56.5, Lymph % (Auto) 30.4, [place] % (Auto) 8.7, Eos % (Auto) 3.3, Baso % (Auto) 0.8, Neut # (Auto) 4.1, Lymph # (Auto) 2.2, [place] # (Auto) 0.6, Eos # (Auto) 0.2, Baso # (Auto) 0.1, Sodium 137, Potassium 4.3, Chloride 100, Carbon Dioxide 37 H, Anion Gap 4.3 L, BUN 17, Creatinine 1.00, Estimated Creat Clear 104, Estimated GFR 73, Est GFR ( Amer) 89, Glucose 76, Calcium 9.0, Total Bilirubin 0.5, AST 34, ALT 22, Alkaline Phosphatase 69, Total Protein 6.6, Albumin 3.8, Globulin 2.8, Albumin/Globulin Ratio 1.4 Orders (Tests/Meds): ED MEDICATIONS Discontinued Medications Generic Name Dose Route Start Last Admin Trade Name Love PRN Reason Stop Dose Admin Baclofen 10 mg 06/23/24 02:42 06/23/24 02:53 Baclofen 10mg Tablet PO 06/23/24 02:43 10 mg ONCE ONE Administration Cyclobenzaprine HCl 5 mg 06/23/24 02:41 06/23/24 02:46 Cyclobenzaprine 10mg Tablet PO 06/23/24 02:42 5 mg ONCE ONE Administration Hydromorphone HCl 0.5 mg 06/22/24 22:44 06/22/24 22:56 Hydromorphone 2mg/Ml Syringe IV 06/22/24 22:45 0.5 mg ONCE ONE Administration Hydromorphone HCl 2 mg 06/23/24 00:34 06/23/24 00:52 Hydromorphone 2mg/Ml Syringe IV 06/23/24 00:35 2 mg ONCE ONE Administration Hydromorphone HCl 0.5 mg 06/23/24 02:51 06/23/24 02:52 Hydromorphone 2mg/Ml Syringe IV 06/23/24 02:52 0.5 mg ONCE ONE Administration Hydroxyzine Pamoate 50 mg 06/23/24 02:37 06/23/24 02:41 Hydroxyzine Pamoate 25mg Capsule PO 06/23/24 02:38 50 mg ONCE ONE Administration Lidocaine/Epinephrine 20 ml 06/22/24 23:13 06/23/24 00:00 Lidocaine 1% W/Epi 1:100,000 20ml Vial IJ 06/22/24 23:14 20 ml ONCE ONE Administration Nicotine 21 mg 06/23/24 02:45 06/23/24 02:51 Nicotine 21mg/24hr Patch TD 06/23/24 02:46 21 mg ONCE ONE Administration Venlafaxine HCl 37.5 mg 06/23/24 02:49 06/23/24 02:53 Venlafaxine 37.5mg Tablet PO 06/23/24 02:50 Not Given ONCE ONE ORDERS Category Date Time Status CT bony pelvis Stat Cat Scan 06/22/24 22:[address] cervical spine wo con Stat Cat Scan 06/22/24 22:[address] head/brain wo con Stat Cat Scan 06/22/24 22:44 Completed Chest XR -- portable [XR chest portable] Stat Exams 06/22/24 22:44 Completed Hip XR right minimum 2 views [XR hip RT 2-3V w/pelvis] Exams 06/22/24 22:44 Completed Stat CBC w/Auto Diff [Complete Blood Count Auto Diff] Stat Lab 06/22/24 22:18 Completed CMP [Comprehensive Metabolic Panel] Stat Lab 06/22/24 22:18 Completed Medical Decision Narrative: In summary, this 73-year-old male current smoker with a history of COPD, chronic respiratory failure on 2.5 L nasal cannula, CAD, hypertension, hyperlipidemia, and CHF presents to the emergency department today with head injury and right hip pain after a fall. On initial evaluation patient is afebrile, hemodynamically stable, nontoxic-appearing, GCS 15. Differential diagnosis includes but is not limited to intracranial hemorrhage, skull fracture, soft tissue injury, scalp laceration, right hip fracture, dislocation, pelvic fracture. Based on these concerns, I ordered CBC, CMP, CT head, CT C-spine, CT bony pelvis, x-ray imaging of the chest and pelvis and right hip. Patient received Dilaudid for treatment. Tetanus up-to-date. Labs personally reviewed demonstrate unremarkable CBC, unremarkable CMP. XR personally interpreted demonstrates no acute cardiopulmonary pathology or pelvic fractures. CT imaging personally interpreted demonstrates no acute intracranial hemorrhage. Scalp laceration was repaired by me at bedside. See procedure note below for details. Care was handed off to Dr. Cohen pending final CT reads. See below for ultimate disposition. Cohen: Upon my assumption of care patient is hemodynamically stable, GCS15. Lacerations on the scalp were repaired by Dr. Melvin prior to my assumption of care. CT cervical spine, pelvis, as well as the x-rays have resulted and do not demonstrate acute traumatic injury. CT head personally interpreted demonstrates areas of artifact versus possible very small multifocal bleeding. See radiology read for final interpretation. Final radiology reads do demonstrate concern for possible multifocal bleeding. contacted for transfer since patient is on antiplatelet therapy with aspirin and has possible intracranial bleeding. [address] Harp and discussed concern for possible multifocal intracranial bleeds on aspirin. She was able to contact the neurosurgeon who recommended DDAVP and repeat imaging versus transfer to for further evaluation. Because the patient has a potential for significant decompensation and I have no neurosurgery services here, nor do I have DDAVP available to administer to the patient to reverse antiplatelet therapy of aspirin, I believe the best option is for the patient to be treated at . I clarified with Dr. Harp that we do not have DDAVP and will not be able to administer that prior to transfer. She understands and is comfortable with this plan stating that she believes the neurosurgeon only wanted it if we were going to be sending the patient home. Patient was graciously accepted for admission to [facility] ER by ED to ED transfer by Dr. Harp. Patient transferred in stable condition by ambulance to [facility]. Procedures <David Melvin MD - Last Filed: 06/23/24 00:44> Laceration Laceration 1: Site: scalp Size (cm): 12 Description: stellate Depth: involves subcutaneous layer Local Anesthetic: lidocaine 1% and with epi Amount of anesthesia used (mL): 20 Pre-repair: wound explored, irrigated extensively and deep structures intact Skin layer closed with: other (Prolene) Size (cm): 4-0 Number of sutures: 4 Technique: simple, interrupted (3), horizontal mattress (1) and other (5 billy) Critical Care <David Melvin MD - Last Filed: 06/23/24 00:44> Critical Care Time Critical Care Time: No
[2024-06-22 22:51] LABS: Albumin Level 3.8 g/dl (3.5-5.0); Chloride 100 mmol/L (98-107); Potassium 4.3 mmoL/L (3.5-5.1); Sodium 137 mmol/L (136-145)
[2024-06-22 22:54] LABS: Alanine Aminotransferase 22 U/L (12-78); Albumin/Globulin Ratio 1.4 (1.1-1.8); Alkaline Phosphatase 69 U/L (38-126); Anion Gap 4.3 mEq/L (5-15); Aspartate Amino Transferase 34 U/L (17-59); Basophils # 0.1 K/mm3 (0-0.2); Basophils % 0.8 % (0.1-2.0); Bilirubin,Total 0.5 mg/dl (0.2-1.3); Blood Urea Nitrogen 17 mg/dl (9-20); Carbon Dioxide 37 mmol/L (22.0-30.0); Creatinine Clearance Estimated 104 mL/min (50-200); Eosinophils # 0.2 Kmm3 (0.0-0.4); Eosinophils % 3.3 % (0.1-12.0); Estimated Glomerular Filt Rate 73 ml/min (>60); GFR (African American) 89 ML/MIN (>60); Globulin 2.8 g/dL (1.3-3.2); Hemoglobin 13.1 g/dL (14.1-18.0); Lymphocytes # 2.2 K/mm3 (0.7-4.5); Lymphocytes % 30.4 % (10-50); Mean Corpuscular HGB Conc 33.6 g/dL (31.8-35.4); Mean Corpuscular Hemoglobin 32.7 pg (27.0-31.2); Mean Corpuscular Volume 97.3 fl (80-94); Mean Platelet Volume 10.1 fl (7.4-10.4); Monocytes # 0.6 K/mm3 (0.1-1.0); Monocytes % 8.7 % (1.7-9.3); Neutrophils # 4.1 K/mm3 (1.8-7.8); Neutrophils % 56.5 % (37.0-80.0); Nucleated Red Blood Cells # 0 10^3/uL; Nucleated Red Blood Cells % 0 %; Platelet Count 119 K/mm3 (142-424); Red Blood Count 4.01 M/mm3 (4.60-6.20); Red Cell Distribution Width 12.3 % (11.5-17.5); Red Cell Distribution Width-SD 44.5 fL; Total Protein,Serum 6.6 g/dl (6.3-8.2); White Blood Count 7.2 K/mm3 (4.8-10.8)
[2024-06-22 22:55] LABS: Glucose 76 mg/dl (74-100)
[2024-06-22] MEDS: HYDROMORPHONE 2MG/ML SYRINGE 0.5 MG IV (22:56)
[2024-06-22 23:11] VITALS: BP 134/60; PULSE 59; RESP 16; O2SAT 86
[2024-06-22 23:30] VITALS: BP 116/48; PULSE 57; RESP 10; O2SAT 96
[2024-06-23] VITALS: BP 135/64; PULSE 56; RESP 13; O2SAT 96
[2024-06-23] MEDS: LIDOCAINE 1% W/EPI 1:100,000 20ML VIAL 20 ML IJ
[2024-06-23 00:30] VITALS: BP 137/118; RESP 17
[2024-06-23] MEDS: HYDROMORPHONE 2MG/ML SYRINGE 2 MG IV (00:52)
--- NOTE | 2024-06-23 01:44 | PC.NURSE ---
Called for patient transfer and they are going to call back to speak with .
--- NOTE | 2024-06-23 02:36 | PC.NURSE ---
report called to JESSICA Yancey
[2024-06-23] MEDS: hydrOXYzine pamoate 25MG CAPSULE 50 MG PO (02:41)
[2024-06-23] MEDS: CYCLOBENZAPRINE 10MG TABLET 5 MG PO (02:46)
[2024-06-23] MEDS: NICOTINE 21MG/24HR PATCH 21 MG TD (02:51)
[2024-06-23] MEDS: HYDROMORPHONE 2MG/ML SYRINGE 0.5 MG IV (02:52)
[2024-06-23] MEDS: BACLOFEN 10MG TABLET 10 MG PO (02:53)
[2024-06-23 03:00] VITALS: BP 127/60; PULSE 55; RESP 18; TEMP 36.7; O2SAT 94
== END 2024-06-23 03:09 | disposition short-term general hospital (02) ==
PROVIDERS: Emergency Provider Student in an Organized Health Care Education/Training Program; PCP Family Medicine
DX: S01.01XA Laceration without foreign body of scalp, initial encounter (principal); M25.551 Pain in right hip; R93.0 Abnormal findings on diagnostic imaging of skull and head, not elsewhere classified; W18.30XA Fall on same level, unspecified, initial encounter
CPT/HCPCS: 12004; 70450; 71045; 72125; 72192; 73502; 80053; 85025; 96374; 96376; 99285; J1171

== ENCOUNTER 2024-07-27 01:41 | Inpatient (IN) | payer MEDICARE, SELFPAY ==
[2024-07-27] VITALS (78 sets, daily range): BP systolic 100–143; BP diastolic 39–103; PULSE 54–82; RESP 8–26; TEMP 36.4–36.9; O2SAT 90–100; BMI 35.2; BMI 36.0
[2024-07-27 02:00] LABS: Lactate Venous 1.4 mmol/L (0.4-2.0); VBG Base Excess 6.3 mmol/L (-2.4-2.3); VBG HCO3 32.8 mmol/L (23-30); VBG Oxygen Saturation 82.6 % (50-70); VBG PCO2 69.2 mmol/L (35-51); VBG PH 7.29 mmol/L (7.31-7.41); VBG PO2 46.7 mmol/L (28-40)
--- NOTE | 2024-07-27 02:00 | ECG_ITS ---
APPROVED REPORT Exam: Resting ECG HR:63 bpm ECG Measurements Heart Rate 63 AXES MD 214 P 93 QRSd 110 QRS -27 QT 404 T 64 QTc 411 Conclusion SINUS RHYTHM WITH FIRST DEGREE AV BLOCK BORDERLINE LEFT AXIS DEVIATION [QRS AXIS < -20] LOW QRS VOLTAGE IN PRECORDIAL LEADS [QRS DEFLECTION < 1.0 mV IN CHEST LEADS] ABNORMAL ECG No STEMI Electronically signed by : LUIS EDUARDO JONES, 07/27/2024 06:30:10
[2024-07-27 02:25] LABS: Basophils # 0.1 K/mm3 (0-0.2); Basophils % 0.6 % (0.1-2.0); Eosinophils # 0.4 Kmm3 (0.0-0.4); Eosinophils % 4.7 % (0.1-12.0); Hematocrit 35.4 % (42.0-52.0); Hemoglobin 11.4 g/dL (14.1-18.0); Immature Granulocytes # 0.02 10^3uL; Immature Granulocytes % 0.2 %; Lymphocytes # 2.3 K/mm3 (0.7-4.5); Lymphocytes % 27.8 % (10-50); Mean Corpuscular HGB Conc 32.2 g/dL (31.8-35.4); Mean Corpuscular Hemoglobin 31.8 pg (27.0-31.2); Mean Corpuscular Volume 98.6 fl (80-94); Mean Platelet Volume 9.5 fl (7.4-10.4); Monocytes # 0.7 K/mm3 (0.1-1.0); Monocytes % 8.7 % (1.7-9.3); Neutrophils # 4.8 K/mm3 (1.8-7.8); Nucleated Red Blood Cells # 0 10^3/uL; Nucleated Red Blood Cells % 0 %; Platelet Count 142 K/mm3 (142-424); Red Blood Count 3.59 M/mm3 (4.60-6.20); Red Cell Distribution Width 12.9 % (11.5-17.5); Red Cell Distribution Width-SD 46.5 fL; White Blood Count 8.2 K/mm3 (4.8-10.8)
[2024-07-27] MEDS: ASPIRIN 81MG CHEWABLE TABLET 324 MG PO (02:26)
[2024-07-27] MEDS: IPRATROPIUM/ALBUTEROL 3 ML NEB 9 ML IH (02:26)
[2024-07-27 02:28] LABS: Alanine Aminotransferase 22 U/L (12-78); Albumin Level 4.1 g/dl (3.5-5.0); Albumin/Globulin Ratio 1.4 (1.1-1.8); Alkaline Phosphatase 95 U/L (38-126); Anion Gap 5.5 mEq/L (5-15); Aspartate Amino Transferase 29 U/L (17-59); Bilirubin,Total 0.4 mg/dl (0.2-1.3); Blood Urea Nitrogen 19 mg/dl (9-20); Calcium 8.7 mg/dl (8.4-10.2); Carbon Dioxide 37 mmol/L (22.0-30.0); Chloride 99 mmol/L (98-107); Creatinine Clearance Estimated 86 mL/min (50-200); Estimated Glomerular Filt Rate 59 ml/min (>60); GFR (African American) 72 ML/MIN (>60); Globulin 2.9 g/dL (1.3-3.2); Glucose 98 mg/dl (74-100); Potassium 4.5 mmoL/L (3.5-5.1); Sodium 137 mmol/L (136-145)
[2024-07-27 02:40] LABS: NT Pro Brain Natriuretic Pep. 841 pg/mL (0-125)
[2024-07-27 02:41] LABS: Troponin I < 0.01 ng/ml (0.00-0.034)
[2024-07-27 02:49] LABS: INR 0.93 (0.9-1.1); Prothrombin Time 10.4 seconds (10.1-12.5)
[2024-07-27] MEDS: HYDROMORPHONE 2MG/ML SYRINGE 0.5 MG IV (02:58)
[2024-07-27 03:04] LABS: D-Dimer 1.32 ug/mL (0.0-0.5)
[2024-07-27] MEDS: MAGNESIUM SULFATE IN WATER 2 GM/50 ML PIGGYBACK IV (03:10)
--- NOTE | 2024-07-27 03:11 | XR_ITS ---
PROCEDURE INFORMATION: Exam: XR Chest Exam date and time: 07/27/2024 3:12 AM Age: 73 years old Clinical indication: Shortness of breath; Additional info: SOA TECHNIQUE: Imaging protocol: Radiologic exam of the chest. Views: 1 view. COMPARISON: CR XR CHEST PORTABLE 06/22/2024 10:49 PM FINDINGS: Lungs: Unremarkable. No consolidation. Pleural spaces: Unremarkable. No pleural effusion. No pneumothorax. Heart/Mediastinum: Unremarkable. No cardiomegaly. Bones/joints: Unremarkable. IMPRESSION: No acute findings.
[2024-07-27] MEDS: METHYLPREDNISOLONE SOD SUCC 125MG VIAL 125 MG IV (03:14)
--- NOTE | 2024-07-27 03:14 | PC.NURSE ---
Upon entering room, Pt was sitting on edge of bed. Extremely SOA. Duoneb started at this time, was on hold while pt used urinal. Attempting to cough, but unable d/t rib pain. Pt requesting pain medication. upon entering room to admin pain medication, pt assisted back into bed. After getting pt back into bed. Pt more SOA. Dr Cohen called to bedside. Verbal orders received for Solu-Medrol 125mg IV. Magnesium 2G IV, and place pt on BIPAP with cont nebs. RT called. Pt placed on BIPAP with cont albuterol nebs per Will RT @0620
[2024-07-27 03:19] LABS: Adenovirus,PCR Not Detected (NotDetected); Bordetella Pertussis Not Detected (NotDetected); Chlamydophila Pneumoniae, PCR Not Detected (NotDetected); Coronavirus 19, PCR Not Detected (NotDetected); Coronavirus 229E Not Detected (NotDetected); Coronavirus NL63 Not Detected (NotDetected); Coronavirus OC43 Not Detected (NotDetected); Coronovirus HKU1,PCR Not Detected (NotDetected); Human Metapneumovirus Not Detected (NotDetected); Influenza A, PCR Not Detected (NotDetected); Influenza AH1, 2009 Not Detected (NotDetected); Influenza AH1, PCR Not Detected (NotDetected); Influenza AH3,PCR Not Detected (NotDetected); Influenza B, PCR Not Detected (NotDetected); Mycoplasma Pneumoniae, PCR Not Detected (NotDetected); Parainfluenza 1, PCR Not Detected (NotDetected); Parainfluenza 2, PCR Not Detected (NotDetected); Parainfluenza 3, PCR Not Detected (NotDetected); Parainfluenza 4, PCR Not Detected (NotDetected); Respiratory Syncytial Virus Not Detected (NotDetected); Rhinovirus/Enterovirus Not Detected (NotDetected)
[2024-07-27] MEDS: DOXYCYCLINE HYCLATE 100 MG in 0.9 % SODIUM CHLORIDE 250 ML 166.667 MG IV (03:52)
[2024-07-27] MEDS: ALBUTEROL 0.083% 2.5 MG/3 ML NEB 20 MG IH (03:56)
[2024-07-27 04:18] LABS: VBG Base Excess -6.1 mmol/L (-2.4-2.3); VBG HCO3 21.9 mmol/L (23-30); VBG Oxygen Saturation 98.5 % (50-70); VBG PCO2 57.7 mmol/L (35-51); VBG PO2 146.8 mmol/L (28-40); VBG Total CO2 23.7 mmol/L (23-27)
[2024-07-27 04:27] LABS: Lactate Venous 2.6 mmol/L (0.4-2.0)
--- NOTE | 2024-07-27 04:37 | PC.NURSE ---
pt asleep at this time. family at bedside. BIPAP in place.
--- NOTE | 2024-07-27 04:46 | PC.NURSE ---
report called to Isaiah Persaud RN
--- NOTE | 2024-07-27 05:09 | [facility].EDCP ---
Discharge Plan Disposition Patient Disposition: Admitted Condition: Serious Clinical Impressions Clinical Impression: Acute exacerbation of chronic obstructive pulmonary disease, Acute respiratory failure with hypoxia and hypercapnia Discharge ED Provider: Eunice Cohen General Chief Complaint: Shortness of Breath/Dyspnea Stated Complaint: chest pain Time Seen by Provider: 07/27/24 01:47 Mode of Arrival: Wheelchair Source of Information: Patient Description of Symptoms (Recalled from ER Triage Doc. by RN): Pt to ED with c/o left rib pain and worsening SOA since 2099. Pt reports multiple broken ribs from falls that occurred around 07/14. Pt uses 3L NC continuously at home. Pt voices he vapes and smokes 10 cigarettes/day. Reports hx of COPD. History of Present Illness HPI narrative: 73-year-old male with history of of COPD, hypertension, hyperlipidemia, CAD, CHF on furosemide presents to the ER with complaints of chest pain and shortness of breath. Patient has had multiple recent falls and fractured ribs recently. He has had difficulty taking deep breaths and coughing secondary to pain. He reports tonight he started feeling more short of breath than normal. He has been using his home medications including COPD medications as prescribed. Patient is on 3 L nasal cannula at home. He still vapes and smokes despite advanced COPD. Family is concerned that while the patient typically gets short of breath with exertion like activities around the house, his short of breath has been dramatically provoked by even the slightest exertion such as getting up from a chair which is new. Patient has had no fevers or chills, no chest pain, nausea, vomiting, abdominal pain, diarrhea, numbness, tingling, or localizing weakness. Patient denies new productive cough. Related Data Home Medications ?Medication ?Instructions ?Recorded ?Confirmed amlodipine 10 mg tablet 10 mg PO DAILY High Blood Pressure 01/04/20 02/24/23 baclofen 10 mg tablet 10 mg PO QID MUSCLE SPASMS 01/04/20 02/24/23 carvedilol 25 mg tablet 37.5 mg PO BID Hypertension 01/04/20 02/24/23 clonidine HCl 0.2 mg tablet 0.2 mg PO DAILY Hypertension 01/04/20 02/24/23 gabapentin 600 mg tablet 600 mg PO QID peripheal neuropathy 01/04/20 02/24/23 hydrocodone 10 mg-acetaminophen 1 tab PO QIDP PRN Moderate Pain 01/04/20 02/24/23 325 mg tablet (Scale Score 5-6) ibuprofen 600 mg tablet 600 mg PO Q8HP PRN Mild Pain 01/04/20 02/24/23 (Scale Score 1-4) lisinopril 20 mg tablet 20 mg PO BID Hypertension 01/04/20 02/24/23 lovastatin 40 mg tablet 40 mg PO HS Cholesterol 01/04/20 02/24/23 albuterol sulfate 90 mcg/actuation 1 inh inhalation Q4HP PRN 01/15/20 02/24/23 aerosol inhaler Shortness Of Breath bupropion HCl 300 mg 24 hr tablet, 300 mg PO DAILY Anxiety 02/27/22 02/24/23 extended release buspirone 15 mg tablet 15 mg PO BID Anxiety 02/27/22 02/24/23 amitriptyline 50 mg tablet 50 mg PO HS Anxiety 02/24/23 02/24/23 aspirin 81 mg tablet,delayed 81 mg PO DAILY Heart Disease 02/24/23 02/24/23 release (Adult Low Dose Aspirin) budesonide 160 mcg-glycopyr 9 2 inh inhalation BIDRT Copd 02/24/23 02/24/23 mcg-formot 4.8 mcg/actuation HFA inhaler (Breztri Aerosphere) furosemide 40 mg tablet 40 mg PO BIDL Fluid 02/24/23 02/24/23 ipratropium 20 mcg-albuterol 100 1 puff inhalation Q6HP PRN 02/24/23 02/24/23 mcg/actuation mist for inhalation shortness of breath or wheezing (Combivent Respimat) theophylline 300 mg 300 mg PO AM Copd 02/24/23 02/24/23 tablet,extended release,12 hr venlafaxine 150 mg 150 mg PO AM Anxiety 02/24/23 02/24/23 capsule,extended release 24 hr cyclobenzaprine 10 mg tablet 10 mg PO QID Muscle spasm 02/25/23 02/25/23 Previous Rx's ?Medication ?Instructions ?Recorded doxycycline hyclate 100 mg tablet 100 mg PO BID 4 days #7 tabs 02/24/23 ipratropium 0.5 mg-albuterol 3 mg 3 ml inhalation Q6HP PRN shortness 02/24/23 (2.5 mg base)/3 mL nebulization of breath or wheezing 30 days #100 soln ea prednisone 20 mg tablet 40 mg (2 x 20 mg) PO DAILY 3 days 02/24/23 #6 tabs budesonide 160 mcg-glycopyr 9 2 inh inhalation BID 90 days #10.7 05/21/23 mcg-formot 4.8 mcg/actuation HFA grams inhaler (Breztri Aerosphere) Allergies Allergy/AdvReac Type Severity Reaction Status Date / Time Penicillins Allergy Unknown Unknown Verified 07/27/24 05:44 allergy reaction silk Allergy Unknown Unknown Verified 07/27/24 05:44 allergy reaction [facility] Disclaimer: The information contained in this section may have been updated after the patient was seen, as this information can be updated by other users. Medical History Chronic respiratory failure with hypoxia COPD mixed type COPD mixed type Dyspnea Dyspnea on exertion Encounter for monitoring of theophylline therapy History of COPD MRSA infection Screening for lung cancer Smoking greater than 30 pack years Tobacco abuse Tobacco abuse counseling Surgical History No history of previous surgery Family History Other Asthma Diabetes Hypertension Social History (Updated 02/24/23 @ 06:07 by Vicki Huff RN) Smoking Status: Current every day smoker alcohol intake: former current occupational status: other Travel in the last 8 weeks?: None Have you lived/traveled outside [place] in past 30 days?: No Contact w/someone who lives/traveled outside [place] past 30 days?: No Exposure to someone with infectious disease in past 14 days?: No Do you have a fever (greater than 100.4 F or 38 C)?: No Have you tested positive for COVID-19?: No Exposed to someone with COVID-19 in past 14 days?: No Do you have a sore throat?: No Do you have a cough?: No Do you have any weakness?: No Do you have any diarrhea?: No Are you experiencing any unusual bleeding?: No Do you have any muscle aches/pain?: No Do you have any abdominal pain?: No Are you experiencing loss of taste or smell?: No Other Medical History Have you received the Flu Vaccine for this season: No Have you received the Pneumonia Vaccine: No ROS Obtained: Yes Systems reviewed as appropriate & no additional complaints except as documented Per HPI Physical Exam General General appearance: alert Comment: Increased work of breathing with mild respiratory distress, chronically ill-appearing Head Head exam: atraumatic, normocephalic and other (No evidence of acute injury, well-healing scalp wound from previous fall) Eye Eye exam: Present PERRL and EOMI ENT ENT exam: Present mucous membranes moist Neck Neck exam: Present normal inspection and full ROM Chest Chest inspection: Present symmetric chest wall rise and tenderness (Left lateral chest wall without bruising or crepitus) Respiratory Respiratory exam: Present respiratory distress (Mild), wheezes (Diffuse), accessory muscle use and prolonged expiratory phase; Absent stridor Cardiovascular Cardiovascular exam: Present regular rate and normal rhythm Abdominal Exam Abdominal exam: Present soft; Absent distention, tenderness, guarding or rebound Comment: Bruising on the abdominal wall Extremities Exam Extremities exam: Present full ROM and edema (Mild +1 pitting edema bilateral lower extremity) Neurological Exam Neurological exam: Present alert and oriented X3; Absent motor sensory deficit Psychiatric Psychiatric exam: Present normal affect and normal mood Skin Skin exam: Present warm, dry and other (Multiple large areas of bruising noted, specifically on the left shoulder and right low abdomen) HEART Score HEART Score HEART Score assessment performed?: Yes History (anamnesis): Slightly suspicious ECG: Non-specific disturbance Age: >65 years Risk factors: Atherosclerosis history Troponin: </= normal limit HEART Score: 5 Critical Care Critical Care Time Critical Care Time: Yes Attestation: On 07/27/24, the high probability of a clinically significant, sudden or life threatening deterioration of the following system(s) (respiratory) required my full and direct attention, intervention and personal management. The time I documented below is in addition to time spent performing reported procedures but includes the following listed in this critical care notation. Total Time Total Critical Care Time: 65 Medical Decision Making Medical Records Medical records reviewed: Yes I reviewed the patient's medical records. MR Comment: Last time patient was in this ER he had to be transferred to higher level of care secondary to injuries from a fall Jaime Inquiry Pt receiving controlled substance: No Vital Signs Vital Signs: 07/27/24 02:07 07/27/24 02:08 07/27/24 02:18 Temperature 98.5 F Temperature Source Oral Pulse Rate 60 65 Pulse Rate [Apical] 60 Respiratory Rate 21 20 20 Blood Pressure 109/65 L 143/103 H Blood Pressure [Right Arm] 109/65 L Blood Pressure Mean [Right Arm] 79 Blood Pressure Source Blood Pressure Source [Right Arm] Automatic Cuff Blood Pressure Position Blood Pressure Position [Right Arm] Sitting 02 Sat by Pulse Oximetry 98 96 96 Oxygen Delivery Method Nasal Cannula Oxygen Flow Rate (LPM) 4 Fraction of Inspired Oxygen 07/27/24 02:31 07/27/24 02:48 07/27/24 03:23 Temperature Temperature Source Pulse Rate 60 63 61 Pulse Rate [Apical] Respiratory Rate 8 L 19 Blood Pressure 140/60 100/70 L 124/59 L Blood Pressure [Right Arm] Blood Pressure Mean [Right Arm] Blood Pressure Source Blood Pressure Source [Right Arm] Blood Pressure Position Blood Pressure Position [Right Arm] 02 Sat by Pulse Oximetry 100 93 L 99 Oxygen Delivery Method Oxygen Flow Rate (LPM) Fraction of Inspired Oxygen 07/27/24 03:45 07/27/24 04:01 07/27/24 04:03 Temperature Temperature Source Pulse Rate 59 L 63 Pulse Rate [Apical] Respiratory Rate 16 24 Blood Pressure 124/50 L 123/48 L Blood Pressure [Right Arm] Blood Pressure Mean [Right Arm] Blood Pressure Source Blood Pressure Source [Right Arm] Blood Pressure Position Blood Pressure Position [Right Arm] 02 Sat by Pulse Oximetry 99 99 Oxygen Delivery Method Oxygen Flow Rate (LPM) Fraction of Inspired Oxygen 60 07/27/24 05:08 Temperature 98.2 F Temperature Source Oral Pulse Rate 54 L Pulse Rate [Apical] Respiratory Rate 14 Blood Pressure 117/57 L Blood Pressure [Right Arm] Blood Pressure Mean [Right Arm] Blood Pressure Source Automatic Cuff Blood Pressure Source [Right Arm] Blood Pressure Position Sitting Blood Pressure Position [Right Arm] 02 Sat by Pulse Oximetry Oxygen Delivery Method BiPAP Oxygen Flow Rate (LPM) Fraction of Inspired Oxygen Lab Data Labs: Lab Results 07/27/24 01:50: WBC 8.2, RBC 3.59 L, Hgb 11.4 L, Hct 35.4 L, MCV 98.6 H, MCH 31.8 H, MCHC 32.2, RDW 12.9, Plt Count 142, MPV 9.5, Neut % (Auto) 58.0, Lymph % (Auto) 27.8, [place] % (Auto) 8.7, Eos % (Auto) 4.7, Baso % (Auto) 0.6, Neut # (Auto) 4.8, Lymph # (Auto) 2.3, [place] # (Auto) 0.7, Eos # (Auto) 0.4, Baso # (Auto) 0.1, Sodium 137, Potassium 4.5, Chloride 99, Carbon Dioxide 37 H, Anion Gap 5.5, BUN 19, Creatinine 1.20, Estimated Creat Clear 86, Estimated GFR 59, Est GFR ( Amer) 72, Glucose 98, Calcium 8.7, Total Bilirubin 0.4, AST 29, ALT 22, Alkaline Phosphatase 95, Troponin I < 0.01, NT-Pro-B Natriuret Pep 841 H, Total Protein 7.0, Albumin 4.1, Globulin 2.9, Albumin/Globulin Ratio 1.4 07/27/24 01:57: VBG pH 7.29 L, VBG pCO2 69.2 H, VBG pO2 46.7 H, VBG HCO3 32.8 H, VBG Total CO2 35.0 H, VBG O2 Saturation 82.6 H, VBG Base Excess 6.3 H, VBG Lactic Acid 1.4 07/27/24 02:10: PT 10.4, INR 0.93, D-Dimer 1.32 H 07/27/24 03:13: Chlamy pneumoniae PCR Not detected, Adenovirus (PCR) Not detected, B. pertussis DNA (PCR) Not detected, Coronavirus OC43 (PCR) Not detected, Coronavirus HKU1 (PCR) Not detected, Coronavirus 229E (PCR) Not detected, SARS-CoV-2 (PCR) Not detected, Coronavirus NL63 (PCR) Not detected, Human Metapneumovir PCR Not detected, Influenza A (H1) PCR Not detected, Influ A (H1N1/09) PCR Not detected, Influenza A (H3) PCR Not detected, Influenza Type A (PCR) Not detected, Influenza Type B (PCR) Not detected, M. pneumoniae (PCR) Not detected, Parainfluenza 1 (PCR) Not detected, Parainfluenza 2 (PCR) Not detected, Parainfluenza 3 (PCR) Not detected, Parainfluenza 4 (PCR) Not detected, RSV (PCR) Not detected, Entero/Rhino (PCR) Not detected 07/27/24 04:16: VBG pH 7.20 L, VBG pCO2 57.7 H, VBG pO2 146.8 H, VBG HCO3 21.9 L, VBG Total CO2 23.7, VBG O2 Saturation 98.5 H, VBG Base Excess -6.1 L, VBG Lactic Acid 2.6 H 07/27/24 01:50 07/27/24 01:50 Response Orders (Tests/Meds): ED MEDICATIONS Generic Name Dose Route Start Last Admin Trade Name Love PRN Reason Stop Dose Admin Acetaminophen 650 mg 07/27/24 04:48 Acetaminophen 325mg Tab PO 08/26/24 04:47 Q4HP PRN Fever or Mild Pain (1-3) Nitroglycerin 0.4 mg 07/27/24 01:59 Nitroglycerin 0.4mg Sl Tablet SL 07/28/24 01:59 Q5MINP PRN Chest Pain Ondansetron HCl 4 mg 07/27/24 04:48 Ondansetron 4mg/2ml Vial IV 08/26/24 04:47 Q8HP PRN Nausea Pantoprazole Sodium 40 mg 07/27/24 21:00 Pantoprazole 40mg Tablet PO 08/26/24 20:59 HS VICTOR M Discontinued Medications Generic Name Dose Route Start Last Admin Trade Name Freq PRN Reason Stop Dose Admin Albuterol Sulfate 20 mg 07/27/24 03:09 07/27/24 03:56 Albuterol 0.083% 2.5 Mg/3 Ml [facility] 07/27/24 03:10 20 mg ONCE ONE Administration Albuterol/Ipratropium 9 ml 07/27/24 02:12 07/27/24 02:26 Ipratropium/Albuterol 3 Ml [facility] 07/27/24 02:13 9 ml ONCE ONE Administration Aspirin 324 mg 07/27/24 01:59 07/27/24 02:26 Aspirin 81mg Chewable Tablet PO 07/27/24 02:00 324 mg ONCE ONE Administration Hydromorphone HCl 0.5 mg 07/27/24 02:54 07/27/24 02:58 Hydromorphone 2mg/Ml Syringe IV 07/27/24 02:55 0.5 mg ONCE ONE Administration Magnesium Sulfate 2 gm in 50 mls @ 50 mls/hr 07/27/24 03:09 07/27/24 03:10 Magnesium Sulfate 2gm/50ml Premix IV 07/27/24 04:08 50 mls/hr ONCE ONE Administration Doxycycline Hyclate 100 mg/ 250 mls @ 166.667 mls/hr 07/27/24 03:30 07/27/24 03:52 Sodium Chloride IV 07/27/24 03:31 166.667 mls/hr ONCE ONE Administration Methylprednisolone Sodium Succinate 125 mg 07/27/24 03:06 07/27/24 03:14 Methylprednisolone Sod Succ 125mg Vial IV 07/27/24 03:07 125 mg ONCE ONE Administration ORDERS Category Date Time Status CTA Chest [CT angio chest PE protocol] Stat Cat Scan 07/27/24 02:12 Ordered CXR --portable [XR chest portable] Stat Exams 07/27/24 03:11 Completed Complete Blood Count Auto Diff Stat Lab 07/27/24 01:50 Completed Comprehensive Metabolic Panel Stat Lab 07/27/24 01:50 Completed D-Dimer Stat Lab 07/27/24 02:10 Completed Full Resp Panel w/COVID ([facility]) Routine Lab 07/27/24 03:13 Completed NT Pro Brain Natriuretic Pep. Stat Lab 07/27/24 01:50 Completed Prothrombin Time INR Stat Lab 07/27/24 02:10 Completed Troponin I Q3H Lab 07/27/24 05:00 Ordered Troponin I Q3H Lab 07/27/24 08:00 Ordered Troponin I Stat Lab 07/27/24 01:50 Completed Venous Blood Gas Routine RT 07/27/24 01:57 Completed Venous Blood Gas Routine RT 07/27/24 04:16 Completed MDM Narrative Medical Decision Narrative: In summary, this 73-year-old male with comorbidities described in HPI which are not at goal therapy presents to the emergency department today with shortness of breath. On initial evaluation patient is in mild respiratory distress with prolonged expiratory phase, diminished breath sounds throughout, wheezing, accessory muscle use, no other adventitious sounds, he is requiring 4 L up from his baseline 3 L nasal cannula, mild bilateral lower extremity pitting edema, bruising on the abdomen and left shoulder from previous fall, tenderness of the left ribs without crepitus, bilateral breath sounds are present though diminished remainder of exam unremarkable. Differential diagnosis includes but is not limited to ACS, PE, COPD exacerbation, CHF exacerbation, pneumothorax, hemothorax, pneumonia, among others. Ruling out the most morbid conditions drove my assessment. Based on these concerns, I ordered serum labs, cardiac workup, D-dimer, VBG, CTA chest. ECG personally interpreted demonstrates sinus rhythm first-degree AV block, rate 63, borderline left axis deviation, normal [place] and QTc, no STEMI. I initially administered 3 DuoNeb's to the patient for treatment of symptoms and evidence of COPD exacerbation. He also received IV Solu-Medrol. Labs personally reviewed demonstrate No leukocytosis, mild anemia,, normal platelets, PT/INR normal initial VBG with pH 7.29, hypercarbia with PCO2 69.2, VBG lactic 1.4, CMP not acutely notable, initial troponin undetectably low less than 0.01 reassuring against acute cardiac pathology, pain mildly elevated at 841 though this is not severely elevated. Respiratory panel negative for all analytes. Patient had requested to use the restroom and was demanding to walk to the restroom however with his hypoxia he was eventually convinced to use a urinal at bedside. He had been sitting on the side of the bed and the small amount of exertion just from sitting on the side of the bed to swing his legs back up in bed causes severe acute exacerbation of her shortness of breath. He had severe respiratory distress. He was placed on nonrebreather while NIPPV was prepared. I discussed possible intubation with patient's son and POA at bedside. He indicated that the patient does not want long-term intubation. Explained that at this time intubation was not needed but if he were to worsen further it could be indicated. He understands. Patient was placed on NIPPV with continuous albuterol and IV magnesium. XR personally interpreted demonstrates mild infiltrate in the right lower lobe. See radiology read for final interpretation. With this finding and patient's other, IV doxycycline was administered. After starting NIPPV, work of breathing significantly. Repeat VBG actually showed slight worsening of his pH though his hypercarbia is improving. He does now have a lactic acidosis on VBG. I believe patient had severe acute episode of hypoxia that likely caused these changes. When I went back to discuss these results with the patient, he did not even remember the episode of severely increased work of breathing or being placed on BiPAP. He was being rude with both me and staff and I verbally de-escalated the situation. I explained to him that he was still in a dangerous situation with his severe COPD exacerbation though his work of breathing is improving and breath sounds were improved. I recommended admission to the hospital. He is agreeable at this time. Patient was supposed to go for CTA PE for further eval patient intrathoracic contents, however he is still requiring BiPAP support and I do not believe he is a good candidate for CTA at this time due to his respiratory needs. His D-dimer is elevated which could indicate PE, however I have higher suspicion that it is elevated due to the multiple large areas of bruising from previous falls. Patient's troponin is undetectably low which is reassuring against cardiac strain and I would expect that if patient had a PE significant enough to cause his respiratory symptoms to this degree that he would have hypotension and tachycardia which he does not have at this time. I discussed this case with the hospitalist including patient's current status on BiPAP and his slightly worse VBG but significantly improved clinical status otherwise. I also discussed why the patient is not currently going for CT PE. Hospitalist graciously accepts patient for admission for continued management. Patient admitted in serious but improved condition
[2024-07-27 05:46] LABS: ABG Base Excess 3.5 mmol/L (-2.4-2.3); ABG HCO3 30.6 mmhg (22.0-26.0); ABG Oxygen Saturation 94 % (90-100); ABG PH 7.26 mmol/L (7.35-7.45); ABG PO2 73.4 mmhg (80-100); ABG TCO2 32.7 mmhg (23-27)
[2024-07-27 05:47] LABS: Allen's Test Acceptable; Oxygen 4l %; Source Right Radial
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
--- NOTE | 2024-07-27 05:55 | PC.NURSE ---
pt to unit at 0509 via stretcher
--- NOTE | 2024-07-27 06:25 | PC.NURSE ---
RESP CARE NOTE: Pt settings at 20/8 cmH2O Rate of 22 and FIO2 of 50%. Vt consistently at 700-750ml. Settings decreased per Dr Covington protocol to 16/8 cmH2O to maintain Vt consistently at 450ml. FIO2 also decreased to 30% FIO2 to maintain SPO2 above 90%. Will continue to monitor patient and obtain VBG at 0830.
[2024-07-27] MEDS: HYDROCODONE 10MG/APAP 325MG TAB 1 TAB PO ×3 (06:39→22:13)
--- OUTSIDE RECORDS SUMMARY | 2024-07-27 07:40 | XMS_ITS | Continuity of Care Document ---
Author Organization Unknown Allergies, Adverse Reactions, Alerts Substance Reaction Status Penicillins Active Hydrolyzed silk Active Medications Start Date End Date Medication Signa 20240625 amitriptyline 50 mg oral tab let Take 1 tab(s) orally once a day (at bedtime) 20240625 Breztri Aerosphe re 160 mcg-4.8 mcg-9 mcg/inh inhalation aerosol Inhale 2 INH inhaled 2 times a day 20240625 lisinopril 20 mg oral tablet Take 1 tab(s) orally 2 times a day 20240625 gabapentin 600 mg oral table t Take 1 tab(s) orally 4 times a day; TAKE ONE (1) TABLET BY MOUTH FOUR TIMES DAILY 20240625 busPIRone 15 mg oral tablet Take 1 tab(s) orally 2 times a day 20240625 ibuprofen 600 mg oral tablet Take 1 tab(s) orally every 8 hours as needed for Moderate Pain 20240625 venlafaxine 37.5 mg oral capsule, extended release Take 1 cap(s) orally once a day (in the evening) 20240625 furosemide 40 mg oral tablet Take 2 tab(s) orally once a day (in the morning) 20240625 theophylline 300 mg oral tablet, extended release Take 1 tab(s) orally 2 times a day 20240625 lovastatin 40 mg oral tablet Take 1 tab(s) orally once a day (in the morning) 20240625 cyclobenzaprine 10 mg oral t ablet Take 1 tab(s) orally 4 times a day 20240625 buPROPion 300 mg /24 hours oral tablet, extended release Take 1 tab(s) orally once a day (in the morning) 20240625 guaiFENesin 600 mg oral tablet, extended release Take 2 tab(s) orally 2 times a day 20240625 albuterol 90 mcg /inh inhalation aerosol Inhale 2 INH inhaled every 6 hours 20240625 Combivent Respim at 100 mcg-20 mcg/inh inhalation aerosol Inhale 1 INH inhaled 4 times a day 20240625 HYDROCO/APAP TAB 10-325MG 10-325 mg tablet 10-325 mg tablet Take 1 tab(s) orally 4 times a day; TAKE ONE (1) TABLET BY MOUTH FOUR TIMES DAILY NEEDED [id number] amLODIPine 10 mg oral tablet Take 1 tab(s) orally once a day (in the morning) 20240625 carvedilol 25 mg oral tablet Take 1 tab(s) orally 2 times a day [id number] Aspirin EC 81 mg oral delayed release tablet Take 1 tab(s) orally once a day (in the evening) 20240625 baclofen 10 mg oral tablet T nyla 1 tab(s) orally 4 times a day Problems Type Code Description Effective Start Effective End Onset/Exacerbation Date Primary J44.9 Chronic obstruct aster pulmonary disease` unspecified 20760116 [id number] Other I25.10 Athscl heart disease of [place] coronary artery w/o ang pctrs [id number] [id number] Other E78.5 Hyperlipidemia` unspecified [id number] Other K21.9 Gastro-esophagea l reflux disease without esophagitis 82161794 [id number] Other Z79.02 [facility] (curre nt) use of antithrombotics/ant iplatelets [id number] Other G89.29 Other chronic pain [id number] 2 [id number] Other F19.10 Other psychoacti ve substance abuse` uncomplicated [id number] [id number] Other Z91.81 History of falling [id number] Insurance Providers Payer Name Policy type / Coverage type Policy ID Covered Democrat ID Policy [place] Patient Responsibility Patient Responsibility (2017 - ) [id number] Gerardo Malone [facility] [employer] CSI Medicare [employer] (02/25/2023 - ) [id number] Gerardo Malone
[2024-07-27 08:14] LABS: Troponin I < 0.01 ng/ml (0.00-0.034)
[2024-07-27 08:17] LABS: Reflex Lactic Add Lactic Reflex
[2024-07-27 08:42] LABS: Lactic Acid Follow Up (RFLX 1) 0.6 mmol/L (0.7-2.1)
[2024-07-27 08:52] LABS: Lactate Venous 1.1 mmol/L (0.4-2.0); VBG Base Excess 3.8 mmol/L (-2.4-2.3); VBG HCO3 30.4 mmol/L (23-30); VBG Oxygen Saturation 74.6 % (50-70); VBG PCO2 65.1 mmol/L (35-51); VBG PH 7.29 mmol/L (7.31-7.41); VBG PO2 40.5 mmol/L (28-40); VBG Total CO2 32.4 mmol/L (23-27)
[2024-07-27 09:01] LABS: Troponin I < 0.01 ng/ml (0.00-0.034)
--- NOTE | 2024-07-27 09:25 | PC.NURSE ---
Patients bed scale weight is 255.2 lbs at this time.
[2024-07-27] MEDS: BUSPIRONE HCL 10 MG TABLET 15 MG PO ×2 (10:09→20:13)
[2024-07-27] MEDS: buPROPion HCl SR 150MG TAB 150 MG PO ×2 (10:09→20:12)
[2024-07-27] MEDS: ASPIRIN EC 81MG TABLET 81 MG PO (10:11)
[2024-07-27] MEDS: CARVEDILOL 25MG TABLET 37.5 MG PO ×2 (10:11→20:14)
[2024-07-27] MEDS: FUROSEMIDE 100MG/10ML VIAL 80 MG IV ×2 (10:12→16:25)
[2024-07-27] MEDS: IPRATROPIUM/ALBUTEROL 3 ML NEB IH ×4 (10:21→21:39)
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
--- NOTE | 2024-07-27 10:49 | PC.NURSE ---
Primary RN discussed ordered CTA with . states Hold off with CTA. I want the patient on Bipap at this time. I will check Dr. Covington and we can reevaluate later today. Continuation of care plan.
--- NOTE | 2024-07-27 10:52 | HMH.ITSTN ---
SPOKE WITH NURSE, DR SAMPSON WANTS TO HOLD OFF ON CT FOR NOW BECAUSE PATIENT IS BEING PLACED BACK ON BIPAP.
--- NOTE | 2024-07-27 10:52 | HMH.PHAINT1 ---
Pharmacy Intervention Comments: MEDICATION RECONCILIATION COMPLETED ON PATIENT USING EXTERNAL FILL HISTORY FROM PHARMACY AND DEE REPORT. -CARMINE SUTTON, SHAROND
[2024-07-27] MEDS: BACLOFEN 10MG TABLET 10 MG PO ×3 (12:58→20:13)
[2024-07-27] MEDS: GABAPENTIN 600MG TABLET 600 MG PO ×3 (12:58→20:21)
[2024-07-27] MEDS: CYCLOBENZAPRINE 10MG TABLET 10 MG PO ×3 (12:58→20:13)
--- NOTE | 2024-07-27 16:00 | PC.NURSE ---
Per , okay to remove Bipap for patient to eat at this time. Continuation of care plan.
--- NOTE | 2024-07-27 16:38 | PC.NURSE ---
Patient placed on Bipap at this time. Continuation of care plan.
[2024-07-27] MEDS: METHYLPREDNISOLONE SOD SUCC 40MG VIAL 40 MG IV (17:36)
[2024-07-27] MEDS: AMITRIPTYLINE 50MG TABLET 50 MG PO (20:13)
[2024-07-27] MEDS: PANTOPRAZOLE 40MG TABLET 40 MG PO (20:13)
[2024-07-28] VITALS (13 sets, daily range): BP systolic 131–149; BP diastolic 59–70; PULSE 58–76; RESP 12–22; TEMP 36.4–37; O2SAT 92–99; BMI 35.4
[2024-07-28] MEDS: IPRATROPIUM/ALBUTEROL 3 ML NEB IH ×3 (01:18→10:18)
[2024-07-28] MEDS: METHYLPREDNISOLONE SOD SUCC 40MG VIAL 40 MG IV (05:48)
[2024-07-28 06:02] LABS: Lactate Venous 1.5 mmol/L (0.4-2.0); VBG Base Excess 4.4 mmol/L (-2.4-2.3); VBG HCO3 29.9 mmol/L (23-30); VBG PCO2 54.9 mmol/L (35-51); VBG PH 7.35 mmol/L (7.31-7.41); VBG PO2 64.4 mmol/L (28-40); VBG Total CO2 31.6 mmol/L (23-27)
[2024-07-28 06:05] LABS: Basophils % 0.2 % (0.1-2.0); Hematocrit 33.7 % (42.0-52.0); Hemoglobin 11.3 g/dL (14.1-18.0); Immature Granulocytes # 0.02 10^3uL; Immature Granulocytes % 0.3 %; Lymphocytes % 15.7 % (10-50); Mean Corpuscular HGB Conc 33.5 g/dL (31.8-35.4); Mean Corpuscular Hemoglobin 31.8 pg (27.0-31.2); Mean Corpuscular Volume 94.9 fl (80-94); Mean Platelet Volume 9.8 fl (7.4-10.4); Monocytes # 0.4 K/mm3 (0.1-1.0); Monocytes % 5.4 % (1.7-9.3); Neutrophils # 5.1 K/mm3 (1.8-7.8); Neutrophils % 78.4 % (37.0-80.0); Nucleated Red Blood Cells # 0 10^3/uL; Nucleated Red Blood Cells % 0 %; Platelet Count 132 K/mm3 (142-424); Red Blood Count 3.55 M/mm3 (4.60-6.20); Red Cell Distribution Width 12.5 % (11.5-17.5); Red Cell Distribution Width-SD 43.5 fL; White Blood Count 6.4 K/mm3 (4.8-10.8)
[2024-07-28 06:23] LABS: Albumin Level 3.8 g/dl (3.5-5.0); Chloride 99 mmol/L (98-107); Potassium 4.2 mmoL/L (3.5-5.1); Sodium 135 mmol/L (136-145)
[2024-07-28 06:26] LABS: Alanine Aminotransferase 20 U/L (12-78); Albumin/Globulin Ratio 1.5 (1.1-1.8); Alkaline Phosphatase 92 U/L (38-126); Anion Gap 4.2 mEq/L (5-15); Aspartate Amino Transferase 26 U/L (17-59); Bilirubin,Total 0.2 mg/dl (0.2-1.3); Blood Urea Nitrogen 23 mg/dl (9-20); Calcium 8.4 mg/dl (8.4-10.2); Carbon Dioxide 36 mmol/L (22.0-30.0); Creatinine Clearance Estimated 95 mL/min (50-200); Estimated Glomerular Filt Rate 66 ml/min (>60); GFR (African American) 79 ML/MIN (>60); Globulin 2.5 g/dL (1.3-3.2); Glucose 168 mg/dl (74-100); Total Protein,Serum 6.3 g/dl (6.3-8.2)
[2024-07-28 06:27] LABS: Magnesium 2.4 mg/dl (1.6-2.3)
[2024-07-28] MEDS: HYDROCODONE 10MG/APAP 325MG TAB 1 TAB PO (06:35)
--- NOTE | 2024-07-28 06:39 | PC.NURSE ---
Pt is upset due to not being able to get all of his scheduled medicines that he takes in the mornings for his chronic pain at this time. The medications are ordered for 0900 every day and then he also has 3 prn medications that he can take. pt was given a prn norco 10/325 for his pain. pt was informed that the dayshift doctor will be able to discuss with him possibly changing the times of when he can get the medications.
--- NOTE | 2024-07-28 06:46 | PC.NURSE ---
pt has called out again wanting to get in contact with the dr about getting him more pain medication. he was advised that dayshift dr will be notified about it.
[2024-07-28] MEDS: BACLOFEN 10MG TABLET 10 MG PO ×2 (08:30→13:38)
[2024-07-28] MEDS: ASPIRIN EC 81MG TABLET 81 MG PO (08:30)
[2024-07-28] MEDS: buPROPion HCl SR 150MG TAB 150 MG PO (08:31)
[2024-07-28] MEDS: CARVEDILOL 25MG TABLET 37.5 MG PO (08:31)
[2024-07-28] MEDS: BUSPIRONE HCL 10 MG TABLET 15 MG PO (08:31)
[2024-07-28] MEDS: GABAPENTIN 600MG TABLET 600 MG PO ×2 (08:32→13:39)
[2024-07-28] MEDS: CYCLOBENZAPRINE 10MG TABLET 10 MG PO ×2 (08:32→13:38)
[2024-07-28] MEDS: FUROSEMIDE 100MG/10ML VIAL 80 MG IV (08:32)
[2024-07-28] MEDS: VENLAFAXINE XR 75MG CAPSULE 150 MG PO (08:33)
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
--- NOTE | 2024-07-28 12:16 | SW/DCPLANNER ---
Spoke with patient about home health services and patient stated that he is already established with home health. Monika Doran
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
--- NOTE | 2024-07-28 15:39 | CARE MANAGER ---
Patient discharged home today with new need for a bipap machine. He has used a cpap in the past and has remained hypercarbic. Order/clinical faxed to [facility] and bipap will be delivered to home today.
--- NOTE | 2024-07-29 10:37 | HMH.PHACLD ---
Michael Malone JR has received discharge medication counseling on the following medications:
--- NOTE | 2024-07-29 10:37 | SW/DCPLANNER ---
Spoke with patient on the phone. Patient stated that he is doing much better. Patient stated that he is aware of his upcoming appointment. Patient stated that he was able to get his new medicine picked up from clinic pharmacy. Patient stated that he has never felt so much better and called his daughter srinivas and told her about how much better he felt after sleeping with his bipap machine. Patient stated that he had excellent care. Patient stated that he has no concerns or questions at this time. Monika Doran
== END 2024-07-28 14:13 | disposition home or self-care (01) | DRG 189 ==
LOC: ER 02:43 → ICU 04:46
PROVIDERS: Internal Medicine Pulmonary Disease; Nurse Practitioner Family; Admitting Provider Internal Medicine Adolescent Medicine; Emergency Provider Emergency Medicine; PCP Family Medicine; Visit Provider Internal Medicine Adolescent Medicine
DX: J96.01 Acute respiratory failure with hypoxia (principal); J44.1 Chronic obstructive pulmonary disease with (acute) exacerbation; Z68.41 Body mass index [BMI] 40.0-44.9, adult; J96.02 Acute respiratory failure with hypercapnia; I25.10 Atherosclerotic heart disease of native coronary artery without angina pectoris; I11.0 Hypertensive heart disease with heart failure; I50.9 Heart failure, unspecified; S01.01XA Laceration without foreign body of scalp, initial encounter; F17.210 Nicotine dependence, cigarettes, uncomplicated; E78.5 Hyperlipidemia, unspecified; G89.29 Other chronic pain; E66.813 Obesity, class 3; F17.290 Nicotine dependence, other tobacco product, uncomplicated; F41.9 Anxiety disorder, unspecified; F39 Unspecified mood [affective] disorder; Z79.899 Other long term (current) drug therapy; Z79.82 Long term (current) use of aspirin; Z88.0 Allergy status to penicillin; Z91.048 Other nonmedicinal substance allergy status; Z99.81 Dependence on supplemental oxygen
CPT/HCPCS: 36415; 71045; 80053; 82803; 83605; 83735; 83880; 84484; 85025; 85378; 85610; 87633; 93005; 94640; 94761; 97163; 97166; 97530; J1171; J1938; J2919; J3475; J7050